=== PATIENT | female | born 1965 | race Caucasian/White ===

== ENCOUNTER 2019-11-25 05:57 | Inpatient (IN) ==
[2019-11-25 06:14] VITALS: BMI 29.7
[2019-11-25] MEDS ORDERED: DEMEROL INJ IVP ONE (06:18)
[2019-11-25] MEDS ORDERED: ZOFRAN INJ 4 MG VIAL IVP ONE ×2 (06:18→08:13)
[2019-11-25] MEDS ORDERED: ZOFRAN INJ 4 MG VIAL ONE ×2 (06:24→08:13)
[2019-11-25] MEDS ORDERED: DEMEROL INJ ONE (06:24)
[2019-11-25 06:26] LABS: BASOPHILS # (AUTO) 0.1 X10^3/uL (0.0-0.1); EOSINOPHILS # (AUTO) 0.2 x10^3/uL (0.0-0.2); HEMATOCRIT 39.2 % (36.0-47.0); HEMOGLOBIN 13.9 g/dL (12.0-16.0); LYMPHOCYTES # (AUTO) 3.3 X10^3/uL (1.3-2.9); LYMPHOCYTES % (AUTO) 29.8 % (21.0-51.0); MEAN CORPUSCULAR HEMOGLOBIN 32.2 pg (27.0-34.0); MEAN CORPUSCULAR HGB CONC 35.5 g/dL (33.0-35.0); MEAN CORPUSCULAR VOLUME 90.8 fL (80.0-100.0); MONOCYTES # (AUTO) 0.8 x10^3/uL (0.3-0.8); MONOCYTES % (AUTO) 7.7 % (0.0-13.0); NEUTROPHILS # (AUTO) 6.5 x10^3/uL (2.2-4.8); NEUTROPHILS % (AUTO) 59.5 % (42.0-75.0); PLATELET COUNT 276 X10^3/uL (150.0-450.0); RED BLOOD COUNT 4.32 X10^6/uL (3.5-5.4); RED CELL DISTRIBUTION WIDTH 12.6 % (11.6-16.5); WHITE BLOOD COUNT 10.9 X10^3/uL (3.6-10.0)
--- NOTE | 2019-11-25 06:27 | ED.ABDFE ---
HPI Time Seen Time Seen by Provider: 11/25/19 06:03 HPI Comment HPI Comment: PATIENT IS 54YR OLD WHITE FEMALE IN ER WITH SEVERE 10/10 RUQ ABDOMINAL PAIN AND RIGHT FLANK PAIN. SHARP PAIN RADIATING TO THE BACK ANC ASSOCIATED WITH NAUSEA AND VOMITING, NO FEVER, TRAUMA OR DYSURIA. Complaint Doctors Chief Complaint Comments: RUQ ABDOMINAL PAIN AND RIGHT FLANK PAIN. Reviewed Nurses Notes Review: Yes Source History Provided: Patient and EMS Mode of arrival Mode of Arrival: EMS Timing Came on: Suddenly Duration Since Onset: Constant Duration: Days Location Location: RUQ (RIGHT FLANK PAIN.) and Epigastric Severity Severity: Severe Quality Quality: Cramping and Sharp Context History of: None Modifying factors Worsening Factors: Exertion and Movement Improving Factors: Lying Still Associated signs and symptoms Associated Signs and Symptoms: Nausea and Vomiting; denies Diarrhea, Constipation, Vaginal Discharge and Dysuria ROS Review of Systems Constitutional: No Symptoms Reported and See HPI; negative Fever, Weakness and Fatigue Eyes: No Symptoms Reported and See HPI ENTM: No Symptoms Reported and See HPI; negative Ear Pain, Nose Discharge, Nose Congestion and Throat Pain Respiratoy: No Symptoms Reported and See HPI; negative Moist Cough, Short of Breath and Wheezing Cardiovascular: No Symptoms Reported and See HPI; negative Chest Pain, Edema and Palpitations Gastrointestinal/Abdominal: See HPI, Abdominal Pain, Nausea and Vomiting Genitourinary: No Symptoms Reported and See HPI; negative Dysuria, Frequency and Hematuria Neurological: No Symptoms Reported and See HPI; negative Headache and Dizziness Musculoskeletal: See HPI, Back Pain and Muscle Pain Integumentary: No Symptoms Reported and See HPI; negative Change in Color, Rash and Juandice Hematologic/Lymphatic: No Symptoms Reported and See HPI; negative Lymph adenopathy Endocrine: No Symptoms Reported and See HPI; negative Increased Thirst and Increased Urine Psychiatric: No Symptoms Reported and See HPI All Other Systems: Reviewed and Negative PE Vital Signs Vitals: Temperature 98.2 F Pulse Rate [Right Brachial] 61 Pulse Rate 69 Respiratory Rate 17 Blood Pressure [Right Arm] 121/72 Blood Pressure 187/86 O2 Sat by Pulse Oximetry 98 General Limitations: No Limitations General Appearance: Alert and In No Apparent Distress Head Head Exam: Normal Inspection and Atraumatic Eyes Eye exam: Normal Appearance, PERRL and EOMI; negative Scleral Icterus and Conjunctival Injection ENT ENT Exam: Normal Exam, Normal Oropharynx, Normal External Ear Exam and TM's Normal Bilaterally Neck Neck Exam: Normal Inspection and Trachea Midline; negative Tenderness and Lymphadenopathy Chest Chest Inspection: Normal Inspection and Symmetric Chest Wall Rise; negative Tenderness Respiratory Respiratory Exam: Normal Lung Sounds Bilat; negative Accessory Muscle Use, Chest Wall Tenderness and Respiratory Distress Respiratory Exam: Bilateral: Clear to Auscultation Cardiovascular Cardiovascular Exam: Regular Rate and Normal Rhythm Abdominal Exam Abdominal Exam: Normal Inspection, Normal Bowel Sounds, Soft and Tenderness Abdominal Tenderness: RUQ, Moderate and Other (RI) Rectal Rectal Exam: Deferred Back Back Exam: Normal Inspection, Tenderness and (R) CVA Tenderness; negative Paraspinal Tenderness and Vertebral Tenderness Extremeties Extremities Exam: Normal Inspection and Normal Capillary Refill; negative Tenderness, Edema and Calf Tenderness External Exam: Female: Deferred : Speculum Exam (Female): Deferred : Bimanual Exam (female): Deferred Neurologic Neurological Exam: Alert and Oriented X3 Psychiatric Psychiatric Exam: Normal Affect and Normal Mood Skin Skin Exam: Warm, Dry and Intact MDM Differential Diagnosis Differential Diagnosis- Considerations may include:: Appendicitis, Cholcystitis, Cholelethiasis, Constipation, Diverticular disease, Esophagitis, Gastritus/PUD, Gastroenteritis, Hernia, Pancreatitis, Urinary tract infection and Urolithiasis COURSE Treatment Treatment: SEE ORDERS. DEMOROL 50MG IV AND ZOFRAN 4MG IV. PATIENT STILL HURTING. TORADOL 30MG IV. PATIENT SIGN OUT TO DR. SUERO. Education/Counseling Education/Counseling: Patient ROR Labs Reviewed Laboratory Results Reviewed?: Yes Result Diagrams: 11/25/19 06:05 11/25/19 06:05 Laboratory: WBC 10.9 X10^3/uL (3.6-10.0) H 11/25/19 06:05 RBC 4.32 X10^6/uL (3.5-5.4) 11/25/19 06:05 Hgb 13.9 g/dL (12.0-16.0) 11/25/19 06:05 Hct 39.2 % (36.0-47.0) 11/25/19 06:05 MCV 90.8 fL (80.0-100.0) 11/25/19 06:05 MCH 32.2 pg (27.0-34.0) 11/25/19 06:05 MCHC 35.5 g/dL (33.0-35.0) H 11/25/19 06:05 RDW 12.6 % (11.6-16.5) 11/25/19 06:05 Plt Count 276 X10^3/uL (150.0-450.0) 11/25/19 06:05 MPV 9.0 fL (7.4-11.0) 11/25/19 06:05 Neut % (Auto) 59.5 % (42.0-75.0) 11/25/19 06:05 Lymph % (Auto) 29.8 % (21.0-51.0) 11/25/19 06:05 [place] % (Auto) 7.7 % (0.0-13.0) 11/25/19 06:05 Eos % (Auto) 2.0 % (0.9-2.9) 11/25/19 06:05 Baso % (Auto) 1.0 % (0.2-1.0) 11/25/19 06:05 Neut # (Auto) 6.5 x10^3/uL (2.2-4.8) H 11/25/19 06:05 Lymph # (Auto) 3.3 X10^3/uL (1.3-2.9) H 11/25/19 06:05 [place] # (Auto) 0.8 x10^3/uL (0.3-0.8) 11/25/19 06:05 Eos # (Auto) 0.2 x10^3/uL (0.0-0.2) 11/25/19 06:05 Baso # (Auto) 0.1 X10^3/uL (0.0-0.1) 11/25/19 06:05 Absolute Nucleated RBC 0.1 /100WBC 11/25/19 06:05 Sodium 137 mmol/L (136-145) 11/25/19 06:05 Corrected Sodium 138 mmol/L (136-145) 11/25/19 06:05 Potassium 3.7 mmol/L (3.5-5.1) 11/25/19 06:05 Chloride 102 mmol/L (98-107) 11/25/19 06:05 Carbon Dioxide 24.7 mmol/L (21-32) 11/25/19 06:05 BUN 16 mg/dL (7-18) 11/25/19 06:05 Creatinine 0.88 mg/dL (0.55-1.02) 11/25/19 06:05 Est GFR (MDRD) Af Amer > 60 (>60) 11/25/19 06:05 Est GFR (MDRD) Non-Af > 60 (>60) 11/25/19 06:05 Glucose 126 mg/dL (65-99) H 11/25/19 06:05 Calcium 9.0 mg/dL (8.5-10.1) 11/25/19 06:05 Corrected Calcium TNP 11/25/19 06:05 Total Bilirubin 0.70 mg/dL (0.2-1.0) 11/25/19 06:05 AST 16 Units/L (15-37) 11/25/19 06:05 ALT 30 Units/L (12-78) 11/25/19 06:05 Alkaline Phosphatase 75 Units/L (46-116) 11/25/19 06:05 Total Protein 7.8 g/dL (6.4-8.2) 11/25/19 06:05 Albumin 3.9 g/dL (3.4-5.0) 11/25/19 06:05 Globulin 3.9 g/dL (2.5-4.5) 11/25/19 06:05 Albumin/Globulin Ratio 1.0 Ratio (1.1-2.1) L 11/25/19 06:05 Amylase 28 Units/L (25-115) 11/25/19 06:05 Lipase 148 Units/L (73-393) 11/25/19 06:05 Specimen Type Clean catch urine 11/25/19 08:56 Urine Color Yellow (YELLOW) 11/25/19 08:56 Urine Appearance Hazy (CLEAR) 11/25/19 08:56 Urine pH 6.5 (5.0 - 8.0) 11/25/19 08:56 Ur Specific [place] 1.005 (1.000-1.030) 11/25/19 08:56 Urine Protein Negative (NEGATIVE) 11/25/19 08:56 Urine Glucose (UA) Negative (NEGATIVE) 11/25/19 08:56 Urine Ketones Negative (NEGATIVE) 11/25/19 08:56 Urine Occult Blood 3+ (NEGATIVE) 11/25/19 08:56 Urine Nitrite Negative (NEGATIVE) 11/25/19 08:56 Urine Bilirubin Negative (NEGATIVE) 11/25/19 08:56 Urine Urobilinogen Normal (NORMAL) 11/25/19 08:56 Ur Leukocyte Esterase Negative (NEGATIVE) 11/25/19 08:56 Urine RBC 3-5 /HPF (0-3) A 11/25/19 08:56 Urine WBC None seen /HPF (0-5) 11/25/19 08:56 Ur Squamous Epith Cells Few /HPF (NEGATIVE) 11/25/19 08:56 Urine Bacteria Negative /HPF (NEGATIVE) 11/25/19 08:56 Ur Culture Indicated? No/not indicated 11/25/19 08:56 Opioid Opioid Risk Tool Age ([place] box if 16-45): No Total: 0 Total Score Risk Category: Low Risk Copyright: Tom ETIENNE predicting aberrant behaviors Instructions Forms: Excuse From Work Patient Portal
[2019-11-25 06:35] LABS: ALANINE AMINOTRANSFERASE 30 Units/L (12-78); ALBUMIN 3.9 g/dL (3.4-5.0); ALKALINE PHOSPHATASE 75 Units/L (46-116); AMYLASE 28 Units/L (25-115); ASPARTATE AMINO TRANSFERASE 16 Units/L (15-37); BLOOD UREA NITROGEN 16 mg/dL (7-18); CARBON DIOXIDE 24.7 mmol/L (21-32); CHLORIDE 102 mmol/L (98-107); COR NA(FOR HYPERGLY) 138 mmol/L (136-145); CREATININE 0.88 mg/dL (0.55-1.02); LIPASE 148 Units/L (73-393); SODIUM 137 mmol/L (136-145); TOTAL PROTEIN 7.8 g/dL (6.4-8.2); eGFR NON BLACK RACES > 60 (>60)
[2019-11-25] MEDS ORDERED: TORADOL 30 MG VIAL IVP ONE (08:08)
[2019-11-25] MEDS ORDERED: TORADOL 30 MG VIAL ONE (08:09)
[2019-11-25 09:23] LABS: BILIRUBIN,URINE NEGATIVE (NEGATIVE); BLOOD/HEMOGLOBIN,URINE 3+ (NEGATIVE); GLUCOSE, URINE NEGATIVE (NEGATIVE); KETONES,URINE NEGATIVE (NEGATIVE); LEUKOCYTE ESTERASE ,URINE NEGATIVE (NEGATIVE); NITRITES,URINE NEGATIVE (NEGATIVE); PH,URINE 6.5 (5.0 - 8.0); PROTEIN,URINE NEGATIVE (NEGATIVE); UROBILINOGEN,URINE NORMAL (NORMAL)
[2019-11-25 09:30] LABS: APPEARANCE,URINE HAZY (CLEAR); BACTERIA,URINE NEGATIVE /HPF (NEGATIVE); COLOR,URINE YELLOW (YELLOW); SQUAMOUS EPITHELIAL CELL,UR FEW /HPF (NEGATIVE)
--- NOTE | 2019-11-25 11:04 | ED.ABDFE ---
HPI Time Seen Time Seen by Provider: 11/25/19 06:03 PCP Primary Care Physician: Complaint Chief Complaint:: pt stated she started hurting this morning in her abdominal area and back. Self Treatment fo Chief Complaint: pt stated she took her protonix 40 mg. Source History Provided: Patient and EMS Mode of arrival Mode of Arrival: EMS Timing Onset of Chief Complaint: 11/25/19 Came on: Suddenly PMH PMH Past Medical History: Yes Past Medical History: Hypertension Past Surgical History: Yes Past Surgical History Comment: NECK SURGERY Family History History of Family Medical Conditions: Yes Family Medical History: Hypertension Social History Does patient currently use any type of tobacco product: No Have you used tobacco products in the last 12 months: No Type of Tobacco Use: None Does any household member use tobacco: No Alcohol Use: Occasionally Do you use any recreational Drugs:: Yes (MARIJUANA) Lives With: Spouse Lives Where: Home infectious screening In the last 2 months have you had wt loss of >10#?: NO Have you had fever, night sweats or hemotysis?: No Have you traveled outside the country in the last 6 months?: No Isolation: Standard ROS Review of Systems Constitutional: No Symptoms Reported Eyes: No Symptoms Reported ENTM: No Symptoms Reported Respiratoy: No Symptoms Reported Cardiovascular: No Symptoms Reported Gastrointestinal/Abdominal: No Symptoms Reported Genitourinary: No Symptoms Reported Neurological: No Symptoms Reported Musculoskeletal: No Symptoms Reported Integumentary: No Symptoms Reported Hematologic/Lymphatic: No Symptoms Reported Endocrine: No Symptoms Reported Psychiatric: No Symptoms Reported All Other Systems: Reviewed and Negative PE Vital Signs Vitals: Temperature 98.2 F Pulse Rate [Right Brachial] 61 Pulse Rate 69 Respiratory Rate 17 Blood Pressure [Right Arm] 121/72 Blood Pressure 187/86 O2 Sat by Pulse Oximetry 98 ROR Labs Reviewed Result Diagrams: 11/25/19 06:05 11/25/19 06:05 Laboratory: WBC 10.9 X10^3/uL (3.6-10.0) H 11/25/19 06:05 RBC 4.32 X10^6/uL (3.5-5.4) 11/25/19 06:05 Hgb 13.9 g/dL (12.0-16.0) 11/25/19 06:05 Hct 39.2 % (36.0-47.0) 11/25/19 06:05 MCV 90.8 fL (80.0-100.0) 11/25/19 06:05 MCH 32.2 pg (27.0-34.0) 11/25/19 06:05 MCHC 35.5 g/dL (33.0-35.0) H 11/25/19 06:05 RDW 12.6 % (11.6-16.5) 11/25/19 06:05 Plt Count 276 X10^3/uL (150.0-450.0) 11/25/19 06:05 MPV 9.0 fL (7.4-11.0) 11/25/19 06:05 Neut % (Auto) 59.5 % (42.0-75.0) 11/25/19 06:05 Lymph % (Auto) 29.8 % (21.0-51.0) 11/25/19 06:05 [place] % (Auto) 7.7 % (0.0-13.0) 11/25/19 06:05 Eos % (Auto) 2.0 % (0.9-2.9) 11/25/19 06:05 Baso % (Auto) 1.0 % (0.2-1.0) 11/25/19 06:05 Neut # (Auto) 6.5 x10^3/uL (2.2-4.8) H 11/25/19 06:05 Lymph # (Auto) 3.3 X10^3/uL (1.3-2.9) H 11/25/19 06:05 [place] # (Auto) 0.8 x10^3/uL (0.3-0.8) 11/25/19 06:05 Eos # (Auto) 0.2 x10^3/uL (0.0-0.2) 11/25/19 06:05 Baso # (Auto) 0.1 X10^3/uL (0.0-0.1) 11/25/19 06:05 Absolute Nucleated RBC 0.1 /100WBC 11/25/19 06:05 Sodium 137 mmol/L (136-145) 11/25/19 06:05 Corrected Sodium 138 mmol/L (136-145) 11/25/19 06:05 Potassium 3.7 mmol/L (3.5-5.1) 11/25/19 06:05 Chloride 102 mmol/L (98-107) 11/25/19 06:05 Carbon Dioxide 24.7 mmol/L (21-32) 11/25/19 06:05 BUN 16 mg/dL (7-18) 11/25/19 06:05 Creatinine 0.88 mg/dL (0.55-1.02) 11/25/19 06:05 Est GFR (MDRD) Af Amer > 60 (>60) 11/25/19 06:05 Est GFR (MDRD) Non-Af > 60 (>60) 11/25/19 06:05 Glucose 126 mg/dL (65-99) H 11/25/19 06:05 Calcium 9.0 mg/dL (8.5-10.1) 11/25/19 06:05 Corrected Calcium TNP 11/25/19 06:05 Total Bilirubin 0.70 mg/dL (0.2-1.0) 11/25/19 06:05 AST 16 Units/L (15-37) 11/25/19 06:05 ALT 30 Units/L (12-78) 11/25/19 06:05 Alkaline Phosphatase 75 Units/L (46-116) 11/25/19 06:05 Total Protein 7.8 g/dL (6.4-8.2) 11/25/19 06:05 Albumin 3.9 g/dL (3.4-5.0) 11/25/19 06:05 Globulin 3.9 g/dL (2.5-4.5) 11/25/19 06:05 Albumin/Globulin Ratio 1.0 Ratio (1.1-2.1) L 11/25/19 06:05 Amylase 28 Units/L (25-115) 11/25/19 06:05 Lipase 148 Units/L (73-393) 11/25/19 06:05 Specimen Type Clean catch urine 11/25/19 08:56 Urine Color Yellow (YELLOW) 11/25/19 08:56 Urine Appearance Hazy (CLEAR) 11/25/19 08:56 Urine pH 6.5 (5.0 - 8.0) 11/25/19 08:56 Ur Specific [place] 1.005 (1.000-1.030) 11/25/19 08:56 Urine Protein Negative (NEGATIVE) 11/25/19 08:56 Urine Glucose (UA) Negative (NEGATIVE) 11/25/19 08:56 Urine Ketones Negative (NEGATIVE) 11/25/19 08:56 Urine Occult Blood 3+ (NEGATIVE) 11/25/19 08:56 Urine Nitrite Negative (NEGATIVE) 11/25/19 08:56 Urine Bilirubin Negative (NEGATIVE) 11/25/19 08:56 Urine Urobilinogen Normal (NORMAL) 11/25/19 08:56 Ur Leukocyte Esterase Negative (NEGATIVE) 11/25/19 08:56 Urine RBC 3-5 /HPF (0-3) A 11/25/19 08:56 Urine WBC None seen /HPF (0-5) 11/25/19 08:56 Ur Squamous Epith Cells Few /HPF (NEGATIVE) 11/25/19 08:56 Urine Bacteria Negative /HPF (NEGATIVE) 11/25/19 08:56 Ur Culture Indicated? No/not indicated 11/25/19 08:56 Opioid Opioid Risk Tool Age ([place] box if 16-45): No Total: 0 Total Score Risk Category: Low Risk Copyright: Tom ETIENNE predicting aberrant behaviors Diagnosis Discharge Problem: Abdominal pain Qualifiers: Abdominal location: upper abdomen, unspecified Qualified Code(s): R10.10 - Upper abdominal pain, unspecified Instructions Instructions: Abdominal Pain, Adult, [id number] Forms: Excuse From Work Patient Portal
--- NOTE | 2019-11-25 11:07 | CT ---
HISTORYABD PAINSTUDYABDOMEN/PELVIS WITH CONCOMPARISONNoneTECHNIQUEMultiple axial images of the abdomen and pelvis were obtained from the lung bases to the pubic symphysis after the administration of IV contrast. Dose reduction techniques including Automated Exposure Control (AEC) and adjustment of mA and kV were utilized.FINDINGSThe visualized portions of the lung bases are unremarkable. There is some stranding around the tail of the pancreas compatible with acute pancreatitis. The pancreas enhances normally and there is no evidence for splenic artery aneurysm or portal venous/splenic vein thrombosis. The solid organs otherwise unremarkable in their contrast appearance. The gallbladder is unremarkable in its CT appearance . No significant mesenteric lymphadenopathy or stranding can be observed. No free fluid or free air is seen within the abdomen. No bowel wall thickening or bowel dilatation is present. The colon demonstrates left-sided diverticulosis without evidence for diverticulitis. Appendix is normal. There is an IUD noted in the uterus. The urinary bladder is grossly unremarkable. The bony structures are grossly intact.IMPRESSIONFindings as above compatible with acute pancreatitis.Left-sided colonic diverticulosis without evidence for diverticulitis.Electronically signed by: ROSA PEREZ (Nov 25, 2019 11:05:55)
--- NOTE | 2019-11-25 11:17 | ED.ABDFE ---
HPI Time Seen Time Seen by Provider: 11/25/19 06:03 PCP Primary Care Physician: HPI Comment HPI Comment: Case signed over to be from Dr. Anaya Complaint Chief Complaint:: pt stated she started hurting this morning in her abdominal area and back. Self Treatment fo Chief Complaint: pt stated she took her protonix 40 mg. Reviewed Nurses Notes Review: Yes Source History Provided: Patient and EMS Mode of arrival Mode of Arrival: EMS Timing Onset of Chief Complaint: 11/25/19 Came on: Suddenly PMH PMH Past Medical History: Yes Past Medical History: Hypertension Past Surgical History: Yes Past Surgical History Comment: NECK SURGERY Family History History of Family Medical Conditions: Yes Family Medical History: Hypertension Social History Does patient currently use any type of tobacco product: No Have you used tobacco products in the last 12 months: No Type of Tobacco Use: None Does any household member use tobacco: No Alcohol Use: Occasionally Do you use any recreational Drugs:: Yes (MARIJUANA) Lives With: Spouse Lives Where: Home infectious screening In the last 2 months have you had wt loss of >10#?: NO Have you had fever, night sweats or hemotysis?: No Have you traveled outside the country in the last 6 months?: No Isolation: Standard PE Vital Signs Vitals: Temperature 98.2 F Pulse Rate [Right Brachial] 60 Pulse Rate 69 Respiratory Rate 17 Blood Pressure [Right Arm] 186/83 Blood Pressure 187/86 O2 Sat by Pulse Oximetry 99 ROR Labs Reviewed Laboratory Results Reviewed?: Yes Result Diagrams: 11/25/19 06:05 11/25/19 06:05 Laboratory: WBC 10.9 X10^3/uL (3.6-10.0) H 11/25/19 06:05 RBC 4.32 X10^6/uL (3.5-5.4) 11/25/19 06:05 Hgb 13.9 g/dL (12.0-16.0) 11/25/19 06:05 Hct 39.2 % (36.0-47.0) 11/25/19 06:05 MCV 90.8 fL (80.0-100.0) 11/25/19 06:05 MCH 32.2 pg (27.0-34.0) 11/25/19 06:05 MCHC 35.5 g/dL (33.0-35.0) H 11/25/19 06:05 RDW 12.6 % (11.6-16.5) 11/25/19 06:05 Plt Count 276 X10^3/uL (150.0-450.0) 11/25/19 06:05 MPV 9.0 fL (7.4-11.0) 11/25/19 06:05 Neut % (Auto) 59.5 % (42.0-75.0) 11/25/19 06:05 Lymph % (Auto) 29.8 % (21.0-51.0) 11/25/19 06:05 [place] % (Auto) 7.7 % (0.0-13.0) 11/25/19 06:05 Eos % (Auto) 2.0 % (0.9-2.9) 11/25/19 06:05 Baso % (Auto) 1.0 % (0.2-1.0) 11/25/19 06:05 Neut # (Auto) 6.5 x10^3/uL (2.2-4.8) H 11/25/19 06:05 Lymph # (Auto) 3.3 X10^3/uL (1.3-2.9) H 11/25/19 06:05 [place] # (Auto) 0.8 x10^3/uL (0.3-0.8) 11/25/19 06:05 Eos # (Auto) 0.2 x10^3/uL (0.0-0.2) 11/25/19 06:05 Baso # (Auto) 0.1 X10^3/uL (0.0-0.1) 11/25/19 06:05 Absolute Nucleated RBC 0.1 /100WBC 11/25/19 06:05 Sodium 137 mmol/L (136-145) 11/25/19 06:05 Corrected Sodium 138 mmol/L (136-145) 11/25/19 06:05 Potassium 3.7 mmol/L (3.5-5.1) 11/25/19 06:05 Chloride 102 mmol/L (98-107) 11/25/19 06:05 Carbon Dioxide 24.7 mmol/L (21-32) 11/25/19 06:05 BUN 16 mg/dL (7-18) 11/25/19 06:05 Creatinine 0.88 mg/dL (0.55-1.02) 11/25/19 06:05 Est GFR (MDRD) Af Amer > 60 (>60) 11/25/19 06:05 Est GFR (MDRD) Non-Af > 60 (>60) 11/25/19 06:05 Glucose 126 mg/dL (65-99) H 11/25/19 06:05 Calcium 9.0 mg/dL (8.5-10.1) 11/25/19 06:05 Corrected Calcium TNP 11/25/19 06:05 Total Bilirubin 0.70 mg/dL (0.2-1.0) 11/25/19 06:05 AST 16 Units/L (15-37) 11/25/19 06:05 ALT 30 Units/L (12-78) 11/25/19 06:05 Alkaline Phosphatase 75 Units/L (46-116) 11/25/19 06:05 Total Protein 7.8 g/dL (6.4-8.2) 11/25/19 06:05 Albumin 3.9 g/dL (3.4-5.0) 11/25/19 06:05 Globulin 3.9 g/dL (2.5-4.5) 11/25/19 06:05 Albumin/Globulin Ratio 1.0 Ratio (1.1-2.1) L 11/25/19 06:05 Amylase 28 Units/L (25-115) 11/25/19 06:05 Lipase 148 Units/L (73-393) 11/25/19 06:05 Specimen Type Clean catch urine 11/25/19 08:56 Urine Color Yellow (YELLOW) 11/25/19 08:56 Urine Appearance Hazy (CLEAR) 11/25/19 08:56 Urine pH 6.5 (5.0 - 8.0) 11/25/19 08:56 Ur Specific [place] 1.005 (1.000-1.030) 11/25/19 08:56 Urine Protein Negative (NEGATIVE) 11/25/19 08:56 Urine Glucose (UA) Negative (NEGATIVE) 11/25/19 08:56 Urine Ketones Negative (NEGATIVE) 11/25/19 08:56 Urine Occult Blood 3+ (NEGATIVE) 11/25/19 08:56 Urine Nitrite Negative (NEGATIVE) 11/25/19 08:56 Urine Bilirubin Negative (NEGATIVE) 11/25/19 08:56 Urine Urobilinogen Normal (NORMAL) 11/25/19 08:56 Ur Leukocyte Esterase Negative (NEGATIVE) 11/25/19 08:56 Urine RBC 3-5 /HPF (0-3) A 11/25/19 08:56 Urine WBC None seen /HPF (0-5) 11/25/19 08:56 Ur Squamous Epith Cells Few /HPF (NEGATIVE) 11/25/19 08:56 Urine Bacteria Negative /HPF (NEGATIVE) 11/25/19 08:56 Ur Culture Indicated? No/not indicated 11/25/19 08:56 Other Results Comments: HISTORY ABD PAIN STUDY ABDOMEN/PELVIS WITH CON COMPARISON None TECHNIQUE Multiple axial images of the abdomen and pelvis were obtained from the lung bases to the pubic symphysis after the administration of IV contrast. Dose reduction techniques including Automated Exposure Control (AEC) and adjustment of mA and kV were utilized. FINDINGS The visualized portions of the lung bases are unremarkable. There is some stranding around the tail of the pancreas compatible with acute pancreatitis. Th e pancreas enhances normally and there is no evidence for splenic artery aneurysm or portal venous/splenic vein thrombosis. The solid organs otherwise unremarkable in their contrast appearance. The gallbladder is unremarkable in its CT appearance . No significant mesenteric lymphadenopathy or stranding can be observed. No free fluid or free air is seen within the abdomen. No bowel wall thickening or bowel dilatation is present. The colon demonstrates left- sided diverticulosis without evidence for diverticulitis. Appendix is normal. There is an IUD noted in the uterus. The urinary bladder is grossly unremarkable. The bony structures are grossly intact. IMPRESSION Findings as above compatible with acute pancreatitis. Left-sided colonic diverticulosis without evidence for diverticulitis. Electronically signed by: ROSA PEREZ (Nov 25, 2019 11:05:55) Opioid Opioid Risk Tool Age ([place] box if 16-45): No Total: 0 Total Score Risk Category: Low Risk Copyright: [facility] predicting aberrant behaviors Diagnosis Discharge Problem: Abdominal pain Qualifiers: Abdominal location: upper abdomen, unspecified Qualified Code(s): R10.10 - Upper abdominal pain, unspecified Instructions Instructions: Abdominal Pain, Adult, [id number] Forms: Excuse From Work Patient Portal ADDITIONAL NOTES Additional Notes Additional Notes: Dr. Moncada came to see the patient in the ED. He states he is willing to consult on the patient in the hospital. Dr. Sarkar and he is willing to admit- he is requesting inpatient.
[2019-11-25] MEDS ORDERED: MORPHINE SULFATE INJ 4 MG IVP ONE (11:48)
[2019-11-25] MEDS ORDERED: MORPHINE SULFATE INJ 4 MG ONE (11:59)
--- NOTE | 2019-11-25 12:23 | DR.H&P ---
H&P History & Physical for Day of: H&P Date: 11/25/19 Chief Complaint Chief Complaint: Abdominal pain Allergies Allergies Allergy/AdvReac Type Severity Reaction Status Date / Time No Known Drug Allergies Allergy Verified 11/25/19 12:58 History of Present Illness History of Present Illness: Pt is a 54 yo f pmhx HTN,THOM, DDD, Alcohol use, presenting after having acute abdominal pain this morning w/ associated nausea. Pt reports have persistent sx for over a month and was waiting for her insurance to be approved before seeing a doctor. Her abdominal pain localized to the epigastrium with radiating to the left side and accompanied by nausea and vomiting. Pt has had decreased po intake as pain is aggravated anytime she eats. In the ED, initial labs and imaging:WBC 10.9, Gluc 126, UA unremarkable, CT abd/pelv: There is some stranding around the tail of the pancreas compatible with acute pancreatitis. Pt was started on IVF, pain control with morphine, kept NPO except medications. Will follow up with labs in the morning. Dr. Thompson consulted, appreciate the recs. Past Medical History Past Medical History: Hypertension Family History Family Medical History: Hypertension Social History Does patient currently use any type of tobacco product: No Have you used tobacco products in the last 12 months: No Type of Tobacco Use: None Does any household member use tobacco: No Alcohol Use: Occasionally Medications Home Medications: No Known Drug Allergies Allergy (Verified 11/25/19 06:05) CONTINUE taking the following medications alprazolam [Xanax] 0.5 mg PO BID 11/25/19 [History] amlodipine 10 mg PO DAILY 11/25/19 [History] lisinopril-hydrochlorothiazide 1 tab PO DAILY 11/25/19 [History] oxycodone-acetaminophen [Percocet] 1 tab PO BID 11/25/19 [History] tizanidine [Zanaflex] 4 mg PO BID 11/25/19 [History] Labs Result Diagrams: 11/26/19 05:09 11/26/19 05:09 Labs: Laboratory WBC 10.9 X10^3/uL (3.6-10.0) H 11/25/19 06:05 RBC 4.32 X10^6/uL (3.5-5.4) 11/25/19 06:05 Hgb 13.9 g/dL (12.0-16.0) 11/25/19 06:05 Hct 39.2 % (36.0-47.0) 11/25/19 06:05 MCV 90.8 fL (80.0-100.0) 11/25/19 06:05 MCH 32.2 pg (27.0-34.0) 11/25/19 06:05 MCHC 35.5 g/dL (33.0-35.0) H 11/25/19 06:05 RDW 12.6 % (11.6-16.5) 11/25/19 06:05 Plt Count 276 X10^3/uL (150.0-450.0) 11/25/19 06:05 MPV 9.0 fL (7.4-11.0) 11/25/19 06:05 Neut % (Auto) 59.5 % (42.0-75.0) 11/25/19 06:05 Lymph % (Auto) 29.8 % (21.0-51.0) 11/25/19 06:05 [place] % (Auto) 7.7 % (0.0-13.0) 11/25/19 06:05 Eos % (Auto) 2.0 % (0.9-2.9) 11/25/19 06:05 Baso % (Auto) 1.0 % (0.2-1.0) 11/25/19 06:05 Neut # (Auto) 6.5 x10^3/uL (2.2-4.8) H 11/25/19 06:05 Lymph # (Auto) 3.3 X10^3/uL (1.3-2.9) H 11/25/19 06:05 [place] # (Auto) 0.8 x10^3/uL (0.3-0.8) 11/25/19 06:05 Eos # (Auto) 0.2 x10^3/uL (0.0-0.2) 11/25/19 06:05 Baso # (Auto) 0.1 X10^3/uL (0.0-0.1) 11/25/19 06:05 Absolute Nucleated RBC 0.1 /100WBC 11/25/19 06:05 Sodium 137 mmol/L (136-145) 11/25/19 06:05 Corrected Sodium 138 mmol/L (136-145) 11/25/19 06:05 Potassium 3.7 mmol/L (3.5-5.1) 11/25/19 06:05 Chloride 102 mmol/L (98-107) 11/25/19 06:05 Carbon Dioxide 24.7 mmol/L (21-32) 11/25/19 06:05 BUN 16 mg/dL (7-18) 11/25/19 06:05 Creatinine 0.88 mg/dL (0.55-1.02) 11/25/19 06:05 Est GFR (MDRD) Af Amer > 60 (>60) 11/25/19 06:05 Est GFR (MDRD) Non-Af > 60 (>60) 11/25/19 06:05 Glucose 126 mg/dL (65-99) H 11/25/19 06:05 Calcium 9.0 mg/dL (8.5-10.1) 11/25/19 06:05 Corrected Calcium TNP 11/25/19 06:05 Total Bilirubin 0.70 mg/dL (0.2-1.0) 11/25/19 06:05 AST 16 Units/L (15-37) 11/25/19 06:05 ALT 30 Units/L (12-78) 11/25/19 06:05 Alkaline Phosphatase 75 Units/L (46-116) 11/25/19 06:05 Total Protein 7.8 g/dL (6.4-8.2) 11/25/19 06:05 Albumin 3.9 g/dL (3.4-5.0) 11/25/19 06:05 Globulin 3.9 g/dL (2.5-4.5) 11/25/19 06:05 Albumin/Globulin Ratio 1.0 Ratio (1.1-2.1) L 11/25/19 06:05 Amylase 28 Units/L (25-115) 11/25/19 06:05 Lipase 148 Units/L (73-393) 11/25/19 06:05 Specimen Type Clean catch urine 11/25/19 08:56 Urine Color Yellow (YELLOW) 11/25/19 08:56 Urine Appearance Hazy (CLEAR) 11/25/19 08:56 Urine pH 6.5 (5.0 - 8.0) 11/25/19 08:56 Ur Specific [place] 1.005 (1.000-1.030) 11/25/19 08:56 Urine Protein Negative (NEGATIVE) 11/25/19 08:56 Urine Glucose (UA) Negative (NEGATIVE) 11/25/19 08:56 Urine Ketones Negative (NEGATIVE) 11/25/19 08:56 Urine Occult Blood 3+ (NEGATIVE) 11/25/19 08:56 Urine Nitrite Negative (NEGATIVE) 11/25/19 08:56 Urine Bilirubin Negative (NEGATIVE) 11/25/19 08:56 Urine Urobilinogen Normal (NORMAL) 11/25/19 08:56 Ur Leukocyte Esterase Negative (NEGATIVE) 11/25/19 08:56 Urine RBC 3-5 /HPF (0-3) A 11/25/19 08:56 Urine WBC None seen /HPF (0-5) 11/25/19 08:56 Ur Squamous Epith Cells Few /HPF (NEGATIVE) 11/25/19 08:56 Urine Bacteria Negative /HPF (NEGATIVE) 11/25/19 08:56 Ur Culture Indicated? No/not indicated 11/25/19 08:56 Review of Systems Constitutional: denies Fever and Chills Eyes: No Symptoms Reported ENT: No Symptoms Reported Respiratory: No Symptoms Reported Cardiovascular: No Symptoms Reported Gastrointestinal: Nausea and Abdominal Pain Genitourinary: No Symptoms Reported Musculoskeletal: No Symptoms Reported Skin: No Symptoms Reported Neurological: No Symptoms Reported Physical Exam Vital Signs: Temperature 98.2 F Pulse Rate [Right Brachial] 60 Pulse Rate 69 Respiratory Rate 16 Blood Pressure [Right Arm] 186/83 Blood Pressure 187/86 O2 Sat by Pulse Oximetry 99 Oriented: Normal Eyes: Normal Ear: Normal Nose: Normal Respiratory: Clear Throughout Cardiovascular: Normal : Normal Auscultation: Bowel Sounds: Increased Palpation: Normal Tenderness: Epigastric and Periumbilical Skin: Normal Musculoskeletal: Normal Psychiatric: Normal Mood Description: Calm Assessment/Plan (1) Acute pancreatitis: Status: Acute Plan: NPO, IVF, pain control. Continue to monitor and follow up labs. (2) Hypertension: Status: Acute Plan: Restart home medications (3) THOM (generalized anxiety disorder): Status: Acute Plan: Home medications (4) DDD (degenerative disc disease): Status: Acute Plan: Holding Percocet, pt has morphine prn ordered for pain control. Review H&P Reviewed: Yes Patient was examined?: Yes
[2019-11-25] MEDS ORDERED: AFLURIA II4 or FLUARIX II4 IM ONE (13:31)
[2019-11-25] MEDS: NORVASC TAB 10 MG PO SCH (14:28)
[2019-11-25] MEDS: ZESTORETIC 20/25 MG PO SCH (14:28)
[2019-11-25] MEDS: NS 1000 ML 1,000 ML IV SCH ×2 (14:29→21:05)
[2019-11-25] MEDS: MORPHINE SULFATE INJ 2 MG INJ IVP PRN ×3 (14:29→22:16)
[2019-11-25] MEDS: ZOFRAN INJ 4 MG VIAL IVP PRN ×2 (14:30→22:16)
[2019-11-25 14:51] LABS: HEMOGLOBIN A1C 5.1 %
[2019-11-25 14:54] LABS: AMYLASE 28 Units/L (25-115); BLOOD ALCOHOL < 3 mg/dL (0-19.9); CHOL/HDL RATIO 5.3 (0.0-5.0); CHOLESTEROL 207 mg/dL (0-200); HDL CHOLESTEROL 39 mg/dL (40-60); LIPASE 149 Units/L (73-393); TRIGLYCERIDES 254 mg/dL (0-150)
[2019-11-25] MEDS: D5 1/2 NS 1000 ML 1,000 ML IV SCH (17:52)
[2019-11-25] MEDS: NORCO 5/325 MG TAB PO PRN ×2 (19:35→23:40)
[2019-11-25] MEDS: ZANAFLEX PO SCH (20:05)
[2019-11-25] MEDS: XANAX PO SCH (20:05)
[2019-11-26] MEDS: D5 1/2 NS 1000 ML 1,000 ML IV SCH ×5 (00:23→23:24)
[2019-11-26] MEDS: MORPHINE SULFATE INJ 2 MG INJ IVP PRN ×5 (02:15→19:00)
[2019-11-26] MEDS: NORCO 5/325 MG TAB PO PRN ×4 (04:00→21:00)
[2019-11-26 05:49] LABS: BASOPHILS # (AUTO) 0.1 X10^3/uL (0.0-0.1); BASOPHILS % (AUTO) 0.8 % (0.2-1.0); EOSINOPHILS # (AUTO) 0.2 x10^3/uL (0.0-0.2); EOSINOPHILS % (AUTO) 2.6 % (0.9-2.9); HEMATOCRIT 35.3 % (36.0-47.0); HEMOGLOBIN 12.9 g/dL (12.0-16.0); LYMPHOCYTES # (AUTO) 2.4 X10^3/uL (1.3-2.9); LYMPHOCYTES % (AUTO) 32.4 % (21.0-51.0); MEAN CORPUSCULAR HGB CONC 36.5 g/dL (33.0-35.0); MEAN CORPUSCULAR VOLUME 90.2 fL (80.0-100.0); MEAN PLATELET VOLUME 9.3 fL (7.4-11.0); MONOCYTES # (AUTO) 0.6 x10^3/uL (0.3-0.8); MONOCYTES % (AUTO) 8.1 % (0.0-13.0); NEUTROPHILS # (AUTO) 4.2 x10^3/uL (2.2-4.8); NEUTROPHILS % (AUTO) 56.1 % (42.0-75.0); PLATELET COUNT 229 X10^3/uL (150.0-450.0); RED BLOOD COUNT 3.91 X10^6/uL (3.5-5.4); RED CELL DISTRIBUTION WIDTH 12.4 % (11.6-16.5); WHITE BLOOD COUNT 7.5 X10^3/uL (3.6-10.0)
[2019-11-26 06:05] LABS: ALANINE AMINOTRANSFERASE 25 Units/L (12-78); ALBUMIN 3.4 g/dL (3.4-5.0); ALKALINE PHOSPHATASE 73 Units/L (46-116); ASPARTATE AMINO TRANSFERASE 12 Units/L (15-37); BLOOD UREA NITROGEN 15 mg/dL (7-18); CALCIUM 8.6 mg/dL (8.5-10.1); CARBON DIOXIDE 27.4 mmol/L (21-32); CHLORIDE 104 mmol/L (98-107); CREATININE 1.07 mg/dL (0.55-1.02); SODIUM 140 mmol/L (136-145); TOTAL PROTEIN 7.1 g/dL (6.4-8.2); eGFR NON BLACK RACES 57 (>60)
[2019-11-26] MEDS ORDERED: MICRO K EXTEN CAP 10 MEQ PO PRN (06:55)
[2019-11-26] MEDS ORDERED: MAGNESIUM SULFATE 1 GRAM/100 mL PREMIX 1 GM/100 ML BAG IV PRN (06:55)
[2019-11-26] MEDS ORDERED: POTASSIUM CHL 60 MEQ/NS 0.45% 500 ML IV PRN (06:55)
[2019-11-26] MEDS ORDERED: K-RIDER 10 MEQ/NS 100 ML 10 MEQ/100 ML BAG IV PRN (06:55)
[2019-11-26] MEDS ORDERED: K-DUR TAB 20 MEQ PO PRN (06:55)
[2019-11-26] MEDS ORDERED: POTASSIUM CHL 40 MEQ/NS 0.45% 500 ML IV PRN (06:55)
[2019-11-26] MEDS ORDERED: KLOR-CON PO PRN (06:55)
[2019-11-26] MEDS ORDERED: POTASSIUM CHLORIDE LIQ 20 MEQ UDC PO PRN (06:55)
[2019-11-26] MEDS: XANAX PO SCH ×2 (08:03→21:57)
[2019-11-26] MEDS: ZANAFLEX PO SCH ×2 (08:26→21:57)
[2019-11-26] MEDS: NORVASC TAB 10 MG PO SCH (08:26)
[2019-11-26] MEDS: ZESTORETIC 20/25 MG PO SCH (08:31)
[2019-11-26] MEDS ORDERED: PREVNAR 13 IM ONE (08:33)
--- NOTE | 2019-11-26 09:31 | US ---
HISTORY: [Abdominal pain and pancreatitis.]Study: Right upper quadrant abdominal ultrasoundComparison: [The recent abdominopelvic CT examination performed is not available for my review currently]Technique: Multiple putnam scale and color flow Doppler images of the right upper quadrant were obtained.Findings:The liver [fatty/echogenic]. There is a hypoechoic liver lesion versus 'pseudo' lesion seen within the left hepatic lobe which measures 19 x 16 mm in size. This could reflect a true liver lesion or focal fatty sparing and could be best followed up with MR imaging of the liver with IV contrast and inphase/out of phase sequencing. The portal vein is patent with appropriate flow. The hepatic artery and visualized hepatic veins are also patent. No no other focal intraparenchymal mass or intrahepatic biliary ductal dilatation can be observed. [The mildly distended gallbladder fails to demonstrate evidence for cholelithiasis or layering sludge]. The common bile duct is unremarkable measuring [6 mm]. [No pericholecystic fluid or gallbladder wall thickening can be observed]. The CBD measures [within normal limits]. The right kidney appears normal in size without focal parenchymal mass or nephrolithiasis. The right kidney measurers [11 x 5 x 6 cm]. No hydronephrosis or perirenal fluid can be observed. The [pancreatic head and body are unremarkable. The pancreatic tail] is largely obscured by overlying bowel gas. No other right upper quadrant sonographic abnormalities are identified on this examination.IMPRESSION: Imaging evidence for acute pancreatitis is better demonstrated on the comparative abdominopelvic CT exam. Please see this report.The liver [fatty/echogenic]. There is a hypoechoic liver lesion versus 'pseudo' lesion seen within the left hepatic lobe which measures 19 x 16 mm in size. This could reflect a true liver lesion or focal fatty sparing and could be best followed up with outpatient MR imaging of the liver with IV contrast and inphase/out of phase sequencing. The portal vein is patent with appropriate flow. Distended gallbladder without gallstones or evidence of acute cholecystitis.The common bile duct and pancreatic duct are within normal limits for age without convincing secondary ultrasound evidence for choledocholithiasis.Electronically signed by: ADRIANE LUKE III (Nov 26, 2019 09:30:06)
--- NOTE | 2019-11-26 10:05 | PCM.PROG ---
Progress Note Progress Note for Day of Date of Exam: 11/26/19 Subjective Subjective: Pt is a 54 yo f admitted for acute pancreatitis. Her pain is controlled on current regiment. She still has abdominal tenderness, some nausea. Her K was low at 3.1, will replete. She is scheduled by surgery to have U/S and if necessary may need further imaging studies. Continue to monitor and follow morning labs. Past Medical Family Social History Past Med/Fam/Surg Hx: No changes since H&P Allergies: Allergies No Known Drug Allergies Allergy (Verified 11/25/19 12:58) Review of Systems ROS: No change since H&P Vital Signs and I&O's Vital Signs: Temperature 98.1 F Pulse Rate [Right Brachial] 72 Pulse Rate 69 Respiratory Rate 20 Blood Pressure [Left Arm] 113/64 Blood Pressure [Right Arm] 181/83 Blood Pressure 187/86 O2 Sat by Pulse Oximetry 100 Intake and Output: Intake & Output 11/23/19 11/24/19 11/25/19 11/26/19 23:59 23:59 23:59 23:59 Intake Total 1472 / 1472 903 / 903 Balance 1472 / 1472 903 / 903 Physical Exam Oriented: Normal Eyes: Normal Ear: Normal Nose: Normal Respiratory: Normal Cardiovascular: Normal : Normal Auscultation: Bowel Sounds: Normal Tenderness: Epigastric and Periumbilical Skin: Normal Musculoskeletal: Normal Psychiatric: Normal Mood Description: Calm Speech Pattern: Clear and Appropriate Laboratory and Diagnostics Result Diagrams: 11/26/19 05:09 11/26/19 05:09 Labs: Laboratory WBC 7.5 X10^3/uL (3.6-10.0) 11/26/19 05:09 RBC 3.91 X10^6/uL (3.5-5.4) 11/26/19 05:09 Hgb 12.9 g/dL (12.0-16.0) 11/26/19 05:09 Hct 35.3 % (36.0-47.0) L 11/26/19 05:09 MCV 90.2 fL (80.0-100.0) 11/26/19 05:09 MCH 33.0 pg (27.0-34.0) 11/26/19 05:09 MCHC 36.5 g/dL (33.0-35.0) H 11/26/19 05:09 RDW 12.4 % (11.6-16.5) 11/26/19 05:09 Plt Count 229 X10^3/uL (150.0-450.0) 11/26/19 05:09 MPV 9.3 fL (7.4-11.0) 11/26/19 05:09 Neut % (Auto) 56.1 % (42.0-75.0) 11/26/19 05:09 Lymph % (Auto) 32.4 % (21.0-51.0) 11/26/19 05:09 [place] % (Auto) 8.1 % (0.0-13.0) 11/26/19 05:09 Eos % (Auto) 2.6 % (0.9-2.9) 11/26/19 05:09 Baso % (Auto) 0.8 % (0.2-1.0) 11/26/19 05:09 Neut # (Auto) 4.2 x10^3/uL (2.2-4.8) 11/26/19 05:09 Lymph # (Auto) 2.4 X10^3/uL (1.3-2.9) 11/26/19 05:09 [place] # (Auto) 0.6 x10^3/uL (0.3-0.8) 11/26/19 05:09 Eos # (Auto) 0.2 x10^3/uL (0.0-0.2) 11/26/19 05:09 Baso # (Auto) 0.1 X10^3/uL (0.0-0.1) 11/26/19 05:09 Absolute Nucleated RBC 0.0 /100WBC 11/26/19 05:09 Sodium 140 mmol/L (136-145) 11/26/19 05:09 Corrected Sodium TNP 11/26/19 05:09 Potassium 3.1 mmol/L (3.5-5.1) L 11/26/19 05:09 Chloride 104 mmol/L (98-107) 11/26/19 05:09 Carbon Dioxide 27.4 mmol/L (21-32) 11/26/19 05:09 BUN 15 mg/dL (7-18) 11/26/19 05:09 Creatinine 1.07 mg/dL (0.55-1.02) H 11/26/19 05:09 Est GFR (MDRD) Af Amer > 60 (>60) 11/26/19 05:09 Est GFR (MDRD) Non-Af 57 (>60) L 11/26/19 05:09 Glucose 108 mg/dL (65-99) H 11/26/19 05:09 Hemoglobin A1c 5.1 % 11/25/19 06:05 Calcium 8.6 mg/dL (8.5-10.1) 11/26/19 05:09 Corrected Calcium TNP 11/26/19 05:09 Magnesium 2.1 mg/dL (1.7-2.9) 11/26/19 05:09 Total Bilirubin 0.50 mg/dL (0.2-1.0) 11/26/19 05:09 AST 12 Units/L (15-37) L 11/26/19 05:09 ALT 25 Units/L (12-78) 11/26/19 05:09 Alkaline Phosphatase 73 Units/L (46-116) 11/26/19 05:09 Total Protein 7.1 g/dL (6.4-8.2) 11/26/19 05:09 Albumin 3.4 g/dL (3.4-5.0) 11/26/19 05:09 Globulin 3.7 g/dL (2.5-4.5) 11/26/19 05:09 Albumin/Globulin Ratio 0.9 Ratio (1.1-2.1) L 11/26/19 05:09 Triglycerides 254 mg/dL (0-150) H 11/25/19 06:05 Cholesterol 207 mg/dL (0-200) H 11/25/19 06:05 LDL Cholesterol, Calc 117 mg/dL (0-100) H 11/25/19 06:05 HDL Cholesterol 39 mg/dL (40-60) L 11/25/19 06:05 Cholesterol/HDL Ratio 5.3 (0.0-5.0) H 11/25/19 06:05 Amylase 28 Units/L (25-115) 11/25/19 06:05 Amylase 28 Units/L (25-115) 11/25/19 06:05 Lipase 148 Units/L (73-393) 11/25/19 06:05 Lipase 149 Units/L (73-393) 11/25/19 06:05 Specimen Type Clean catch urine 11/25/19 08:56 Urine Color Yellow (YELLOW) 11/25/19 08:56 Urine Appearance Hazy (CLEAR) 11/25/19 08:56 Urine pH 6.5 (5.0 - 8.0) 11/25/19 08:56 Ur Specific [place] 1.005 (1.000-1.030) 11/25/19 08:56 Urine Protein Negative (NEGATIVE) 11/25/19 08:56 Urine Glucose (UA) Negative (NEGATIVE) 11/25/19 08:56 Urine Ketones Negative (NEGATIVE) 11/25/19 08:56 Urine Occult Blood 3+ (NEGATIVE) 11/25/19 08:56 Urine Nitrite Negative (NEGATIVE) 11/25/19 08:56 Urine Bilirubin Negative (NEGATIVE) 11/25/19 08:56 Urine Urobilinogen Normal (NORMAL) 11/25/19 08:56 Ur Leukocyte Esterase Negative (NEGATIVE) 11/25/19 08:56 Urine RBC 3-5 /HPF (0-3) A 11/25/19 08:56 Urine WBC None seen /HPF (0-5) 11/25/19 08:56 Ur Squamous Epith Cells Few /HPF (NEGATIVE) 11/25/19 08:56 Urine Bacteria Negative /HPF (NEGATIVE) 11/25/19 08:56 Ur Culture Indicated? No/not indicated 11/25/19 08:56 Urine Opiates Screen Positive (NEG=<300) A 11/25/19 17:35 Urine Methadone Screen Negative (NEG=<300) 11/25/19 17:35 Ur Barbiturates Screen Negative (NEG=<200) 11/25/19 17:35 Ur Phencyclidine Scrn Negative (NEG=<25) 11/25/19 17:35 Ur Amphetamines Screen Negative (NEG=<1000) 11/25/19 17:35 U Benzodiazepines Scrn Positive (NEG=<200) A 11/25/19 17:35 Urine Cocaine Screen Negative (NEG=<300) 11/25/19 17:35 U Marijuana (THC) Screen Positive (NEG=<50) A 11/25/19 17:35 Ethyl Alcohol mg/dL < 3 mg/dL (0-19.9) 11/25/19 06:05 Plan (1) Acute pancreatitis: Status: Acute Plan: NPO, IVF, pain control. Continue to monitor and follow up labs. (2) Hypertension: Status: Acute Plan: Restart home medications (3) THOM (generalized anxiety disorder): Status: Acute Plan: Home medications (4) DDD (degenerative disc disease): Status: Acute Plan: Holding Percocet, pt has morphine prn ordered for pain control. (5) Hypokalemia: Status: Acute
[2019-11-26] MEDS: ZOFRAN INJ 4 MG VIAL IVP PRN ×2 (10:30→19:00)
[2019-11-26] MEDS ORDERED: PHENERGAN INJ 25 MG IM ONE ×2 (11:42→12:01)
--- NOTE | 2019-11-26 16:08 | DR.PROGNOT ---
Hospital Progress Notes - Progress Note for Day of: Progress Note Date: 11/26/19 - Chief Complaint Chief Complaint: still c/o upper abdominal pain , no vomiting . US showed fatty liver with slight dilated hepatic ducts , no clear Gallstones . - Past Medical Family Social History Past Med/Fam/Surg Hx: No changes since H&P Allergies: Allergies No Known Drug Allergies Allergy (Verified 11/25/19 12:58) - Review Of Systems ROS: No change since H&P - Vital Signs Vital Signs: Temperature 98.3 F Pulse Rate [Right Brachial] 59 Pulse Rate 69 Respiratory Rate 20 Blood Pressure [Left Arm] 117/55 Blood Pressure [Right Arm] 181/83 Blood Pressure 187/86 O2 Sat by Pulse Oximetry 95 - Physical Exam Oriented: Normal Eyes: Normal Ear: Normal Nose: Normal Respiratory: Normal Cardiovascular: Normal : Normal GI:Auscultation: Normal GI:Palpation: Normal GI: Tenderness: Epigastric, Periumbilical Skin: Normal Musculoskeletal: Normal Psychiatric: Normal Mood Description: Calm Speech Pattern: Clear, Appropriate - Laboratory and Diagnostics Result Diagrams: 11/26/19 05:09 11/26/19 05:09 Labs: Laboratory WBC 7.5 X10^3/uL (3.6-10.0) 11/26/19 05:09 RBC 3.91 X10^6/uL (3.5-5.4) 11/26/19 05:09 Hgb 12.9 g/dL (12.0-16.0) 11/26/19 05:09 Hct 35.3 % (36.0-47.0) L 11/26/19 05:09 MCV 90.2 fL (80.0-100.0) 11/26/19 05:09 MCH 33.0 pg (27.0-34.0) 11/26/19 05:09 MCHC 36.5 g/dL (33.0-35.0) H 11/26/19 05:09 RDW 12.4 % (11.6-16.5) 11/26/19 05:09 Plt Count 229 X10^3/uL (150.0-450.0) 11/26/19 05:09 MPV 9.3 fL (7.4-11.0) 11/26/19 05:09 Neut % (Auto) 56.1 % (42.0-75.0) 11/26/19 05:09 Lymph % (Auto) 32.4 % (21.0-51.0) 11/26/19 05:09 [place] % (Auto) 8.1 % (0.0-13.0) 11/26/19 05:09 Eos % (Auto) 2.6 % (0.9-2.9) 11/26/19 05:09 Baso % (Auto) 0.8 % (0.2-1.0) 11/26/19 05:09 Neut # (Auto) 4.2 x10^3/uL (2.2-4.8) 11/26/19 05:09 Lymph # (Auto) 2.4 X10^3/uL (1.3-2.9) 11/26/19 05:09 [place] # (Auto) 0.6 x10^3/uL (0.3-0.8) 11/26/19 05:09 Eos # (Auto) 0.2 x10^3/uL (0.0-0.2) 11/26/19 05:09 Baso # (Auto) 0.1 X10^3/uL (0.0-0.1) 11/26/19 05:09 Absolute Nucleated RBC 0.0 /100WBC 11/26/19 05:09 Sodium 140 mmol/L (136-145) 11/26/19 05:09 Corrected Sodium TNP 11/26/19 05:09 Potassium 3.1 mmol/L (3.5-5.1) L 11/26/19 05:09 Chloride 104 mmol/L (98-107) 11/26/19 05:09 Carbon Dioxide 27.4 mmol/L (21-32) 11/26/19 05:09 BUN 15 mg/dL (7-18) 11/26/19 05:09 Creatinine 1.07 mg/dL (0.55-1.02) H 11/26/19 05:09 Est GFR (MDRD) Af Amer > 60 (>60) 11/26/19 05:09 Est GFR (MDRD) Non-Af 57 (>60) L 11/26/19 05:09 Glucose 108 mg/dL (65-99) H 11/26/19 05:09 Hemoglobin A1c 5.1 % 11/25/19 06:05 Calcium 8.6 mg/dL (8.5-10.1) 11/26/19 05:09 Corrected Calcium TNP 11/26/19 05:09 Magnesium 2.1 mg/dL (1.7-2.9) 11/26/19 05:09 Total Bilirubin 0.50 mg/dL (0.2-1.0) 11/26/19 05:09 AST 12 Units/L (15-37) L 11/26/19 05:09 ALT 25 Units/L (12-78) 11/26/19 05:09 Alkaline Phosphatase 73 Units/L (46-116) 11/26/19 05:09 Total Protein 7.1 g/dL (6.4-8.2) 11/26/19 05:09 Albumin 3.4 g/dL (3.4-5.0) 11/26/19 05:09 Globulin 3.7 g/dL (2.5-4.5) 11/26/19 05:09 Albumin/Globulin Ratio 0.9 Ratio (1.1-2.1) L 11/26/19 05:09 Triglycerides 254 mg/dL (0-150) H 11/25/19 06:05 Cholesterol 207 mg/dL (0-200) H 11/25/19 06:05 LDL Cholesterol, Calc 117 mg/dL (0-100) H 11/25/19 06:05 HDL Cholesterol 39 mg/dL (40-60) L 11/25/19 06:05 Cholesterol/HDL Ratio 5.3 (0.0-5.0) H 11/25/19 06:05 Amylase 28 Units/L (25-115) 11/25/19 06:05 Amylase 28 Units/L (25-115) 11/25/19 06:05 Lipase 148 Units/L (73-393) 11/25/19 06:05 Lipase 149 Units/L (73-393) 11/25/19 06:05 Specimen Type Clean catch urine 11/25/19 08:56 Urine Color Yellow (YELLOW) 11/25/19 08:56 Urine Appearance Hazy (CLEAR) 11/25/19 08:56 Urine pH 6.5 (5.0 - 8.0) 11/25/19 08:56 Ur Specific [place] 1.005 (1.000-1.030) 11/25/19 08:56 Urine Protein Negative (NEGATIVE) 11/25/19 08:56 Urine Glucose (UA) Negative (NEGATIVE) 11/25/19 08:56 Urine Ketones Negative (NEGATIVE) 11/25/19 08:56 Urine Occult Blood 3+ (NEGATIVE) 11/25/19 08:56 Urine Nitrite Negative (NEGATIVE) 11/25/19 08:56 Urine Bilirubin Negative (NEGATIVE) 11/25/19 08:56 Urine Urobilinogen Normal (NORMAL) 11/25/19 08:56 Ur Leukocyte Esterase Negative (NEGATIVE) 11/25/19 08:56 Urine RBC 3-5 /HPF (0-3) A 11/25/19 08:56 Urine WBC None seen /HPF (0-5) 11/25/19 08:56 Ur Squamous Epith Cells Few /HPF (NEGATIVE) 11/25/19 08:56 Urine Bacteria Negative /HPF (NEGATIVE) 11/25/19 08:56 Ur Culture Indicated? No/not indicated 11/25/19 08:56 Urine Opiates Screen Positive (NEG=<300) A 11/25/19 17:35 Urine Methadone Screen Negative (NEG=<300) 11/25/19 17:35 Ur Barbiturates Screen Negative (NEG=<200) 11/25/19 17:35 Ur Phencyclidine Scrn Negative (NEG=<25) 11/25/19 17:35 Ur Amphetamines Screen Negative (NEG=<1000) 11/25/19 17:35 U Benzodiazepines Scrn Positive (NEG=<200) A 11/25/19 17:35 Urine Cocaine Screen Negative (NEG=<300) 11/25/19 17:35 U Marijuana (THC) Screen Positive (NEG=<50) A 11/25/19 17:35 Ethyl Alcohol mg/dL < 3 mg/dL (0-19.9) 11/25/19 06:05 - Assessment and Plan 1: subsiding acute pancreatitis . cholecystitis . alcohol and tobaco abuse. for biliary scan in am .. - Problem Patient Problems: Patient Problems Hypokalemia (Acute) E87.6 DDD (degenerative disc disease) (Acute) THOM (generalized anxiety disorder) (Acute) F41.1 Hypertension (Acute) I10 Abdominal pain (Acute) R10.9 Acute pancreatitis (Acute) K85.90
[2019-11-27] MEDS: D5 1/2 NS 1000 ML 1,000 ML IV SCH ×4 (01:13→18:07)
[2019-11-27 05:45] LABS: BASOPHILS % (AUTO) 0.6 % (0.2-1.0); EOSINOPHILS # (AUTO) 0.3 x10^3/uL (0.0-0.2); EOSINOPHILS % (AUTO) 4.3 % (0.9-2.9); HEMATOCRIT 35.8 % (36.0-47.0); HEMOGLOBIN 12.8 g/dL (12.0-16.0); LYMPHOCYTES # (AUTO) 2.6 X10^3/uL (1.3-2.9); LYMPHOCYTES % (AUTO) 36.4 % (21.0-51.0); MEAN CORPUSCULAR HEMOGLOBIN 32.5 pg (27.0-34.0); MEAN CORPUSCULAR HGB CONC 35.7 g/dL (33.0-35.0); MEAN CORPUSCULAR VOLUME 91.1 fL (80.0-100.0); MEAN PLATELET VOLUME 8.9 fL (7.4-11.0); MONOCYTES # (AUTO) 0.6 x10^3/uL (0.3-0.8); MONOCYTES % (AUTO) 8.5 % (0.0-13.0); NEUTROPHILS # (AUTO) 3.5 x10^3/uL (2.2-4.8); NEUTROPHILS % (AUTO) 50.2 % (42.0-75.0); PLATELET COUNT 246 X10^3/uL (150.0-450.0); RED BLOOD COUNT 3.93 X10^6/uL (3.5-5.4); RED CELL DISTRIBUTION WIDTH 12.5 % (11.6-16.5)
[2019-11-27 06:05] LABS: ALANINE AMINOTRANSFERASE 27 Units/L (12-78); ALBUMIN 3.3 g/dL (3.4-5.0); ALKALINE PHOSPHATASE 67 Units/L (46-116); ASPARTATE AMINO TRANSFERASE 14 Units/L (15-37); BLOOD UREA NITROGEN 11 mg/dL (7-18); CALCIUM 8.6 mg/dL (8.5-10.1); CHLORIDE 105 mmol/L (98-107); COR CA(FOR HYPOALB) 9.2 mg/dL (8.5-10.1); COR NA(FOR HYPERGLY) 140 mmol/L (136-145); CREATININE 1.21 mg/dL (0.55-1.02); SODIUM 140 mmol/L (136-145); TOTAL PROTEIN 7.2 g/dL (6.4-8.2); eGFR NON BLACK RACES 50 (>60)
[2019-11-27] MEDS: XANAX PO SCH ×2 (09:14→21:31)
[2019-11-27] MEDS: NORVASC TAB 10 MG PO SCH (09:14)
[2019-11-27] MEDS: ZANAFLEX PO SCH ×2 (09:14→21:31)
[2019-11-27] MEDS: ZESTORETIC 20/25 MG PO SCH (09:15)
[2019-11-27] MEDS: NORCO 5/325 MG TAB PO PRN ×2 (09:15→19:15)
--- NOTE | 2019-11-27 12:32 | PCM.PROG ---
Progress Note Progress Note for Day of Date of Exam: 11/27/19 Subjective Subjective: Pt is a 54 yo f admitted for acute pancreatitis. Her pain is controlled on current regiment. She did sleep a lot yesterday and is having some abdominal tenderness and nausea. Her K has normalized. She is scheduled by surgery to have HIDA today. Depending on impression, can consider starting CLD and advancing as tolerated. Continue to monitor and follow morning labs. Past Medical Family Social History Past Med/Fam/Surg Hx: No changes since H&P Allergies: Allergies No Known Drug Allergies Allergy (Verified 11/25/19 12:58) Review of Systems ROS: No change since H&P Vital Signs and I&O's Vital Signs: Temperature 98.2 F Pulse Rate [Right Brachial] 63 Pulse Rate 69 Respiratory Rate 18 Blood Pressure [Left Arm] 113/63 Blood Pressure [Right Arm] 181/83 Blood Pressure 187/86 O2 Sat by Pulse Oximetry 98 Intake and Output: Intake & Output 11/24/19 11/25/19 11/26/19 11/27/19 23:59 23:59 23:59 23:59 Intake Total 1472 / 1472 3042 / 3042 836 / 836 Balance 1472 / 1472 3042 / 3042 836 / 836 Physical Exam Oriented: Normal Eyes: Normal Ear: Normal Nose: Normal Respiratory: Normal Cardiovascular: Normal : Normal Auscultation: Bowel Sounds: Normal Tenderness: Epigastric and Periumbilical Skin: Normal Musculoskeletal: Normal Psychiatric: Normal Mood Description: Calm Speech Pattern: Clear and Appropriate Laboratory and Diagnostics Result Diagrams: 11/27/19 05:11 11/27/19 05:11 Labs: Laboratory WBC 7.0 X10^3/uL (3.6-10.0) 11/27/19 05:11 RBC 3.93 X10^6/uL (3.5-5.4) 11/27/19 05:11 Hgb 12.8 g/dL (12.0-16.0) 11/27/19 05:11 Hct 35.8 % (36.0-47.0) L 11/27/19 05:11 MCV 91.1 fL (80.0-100.0) 11/27/19 05:11 MCH 32.5 pg (27.0-34.0) 11/27/19 05:11 MCHC 35.7 g/dL (33.0-35.0) H 11/27/19 05:11 RDW 12.5 % (11.6-16.5) 11/27/19 05:11 Plt Count 246 X10^3/uL (150.0-450.0) 11/27/19 05:11 MPV 8.9 fL (7.4-11.0) 11/27/19 05:11 Neut % (Auto) 50.2 % (42.0-75.0) 11/27/19 05:11 Lymph % (Auto) 36.4 % (21.0-51.0) 11/27/19 05:11 [place] % (Auto) 8.5 % (0.0-13.0) 11/27/19 05:11 Eos % (Auto) 4.3 % (0.9-2.9) H 11/27/19 05:11 Baso % (Auto) 0.6 % (0.2-1.0) 11/27/19 05:11 Neut # (Auto) 3.5 x10^3/uL (2.2-4.8) 11/27/19 05:11 Lymph # (Auto) 2.6 X10^3/uL (1.3-2.9) 11/27/19 05:11 [place] # (Auto) 0.6 x10^3/uL (0.3-0.8) 11/27/19 05:11 Eos # (Auto) 0.3 x10^3/uL (0.0-0.2) H 11/27/19 05:11 Baso # (Auto) 0.0 X10^3/uL (0.0-0.1) 11/27/19 05:11 Absolute Nucleated RBC 0.1 /100WBC 11/27/19 05:11 Sodium 140 mmol/L (136-145) 11/27/19 05:11 Corrected Sodium 140 mmol/L (136-145) 11/27/19 05:11 Potassium 3.6 mmol/L (3.5-5.1) 11/27/19 05:11 Chloride 105 mmol/L (98-107) 11/27/19 05:11 Carbon Dioxide 29.0 mmol/L (21-32) 11/27/19 05:11 BUN 11 mg/dL (7-18) 11/27/19 05:11 Creatinine 1.21 mg/dL (0.55-1.02) H 11/27/19 05:11 Est GFR (MDRD) Af Amer > 60 (>60) 11/27/19 05:11 Est GFR (MDRD) Non-Af 50 (>60) L 11/27/19 05:11 Glucose 113 mg/dL (65-99) H 11/27/19 05:11 Hemoglobin A1c 5.1 % 11/25/19 06:05 Calcium 8.6 mg/dL (8.5-10.1) 11/27/19 05:11 Corrected Calcium 9.2 mg/dL (8.5-10.1) 11/27/19 05:11 Magnesium 2.1 mg/dL (1.7-2.9) 11/26/19 05:09 Total Bilirubin 0.30 mg/dL (0.2-1.0) 11/27/19 05:11 AST 14 Units/L (15-37) L 11/27/19 05:11 ALT 27 Units/L (12-78) 11/27/19 05:11 Alkaline Phosphatase 67 Units/L (46-116) 11/27/19 05:11 Total Protein 7.2 g/dL (6.4-8.2) 11/27/19 05:11 Albumin 3.3 g/dL (3.4-5.0) L 11/27/19 05:11 Globulin 3.9 g/dL (2.5-4.5) 11/27/19 05:11 Albumin/Globulin Ratio 0.8 Ratio (1.1-2.1) L 11/27/19 05:11 Triglycerides 254 mg/dL (0-150) H 11/25/19 06:05 Cholesterol 207 mg/dL (0-200) H 11/25/19 06:05 LDL Cholesterol, Calc 117 mg/dL (0-100) H 11/25/19 06:05 HDL Cholesterol 39 mg/dL (40-60) L 11/25/19 06:05 Cholesterol/HDL Ratio 5.3 (0.0-5.0) H 11/25/19 06:05 Amylase 28 Units/L (25-115) 11/25/19 06:05 Amylase 28 Units/L (25-115) 11/25/19 06:05 Lipase 148 Units/L (73-393) 11/25/19 06:05 Lipase 149 Units/L (73-393) 11/25/19 06:05 Specimen Type Clean catch urine 11/25/19 08:56 Urine Color Yellow (YELLOW) 11/25/19 08:56 Urine Appearance Hazy (CLEAR) 11/25/19 08:56 Urine pH 6.5 (5.0 - 8.0) 11/25/19 08:56 Ur Specific [place] 1.005 (1.000-1.030) 11/25/19 08:56 Urine Protein Negative (NEGATIVE) 11/25/19 08:56 Urine Glucose (UA) Negative (NEGATIVE) 11/25/19 08:56 Urine Ketones Negative (NEGATIVE) 11/25/19 08:56 Urine Occult Blood 3+ (NEGATIVE) 11/25/19 08:56 Urine Nitrite Negative (NEGATIVE) 11/25/19 08:56 Urine Bilirubin Negative (NEGATIVE) 11/25/19 08:56 Urine Urobilinogen Normal (NORMAL) 11/25/19 08:56 Ur Leukocyte Esterase Negative (NEGATIVE) 11/25/19 08:56 Urine RBC 3-5 /HPF (0-3) A 11/25/19 08:56 Urine WBC None seen /HPF (0-5) 11/25/19 08:56 Ur Squamous Epith Cells Few /HPF (NEGATIVE) 11/25/19 08:56 Urine Bacteria Negative /HPF (NEGATIVE) 11/25/19 08:56 Ur Culture Indicated? No/not indicated 11/25/19 08:56 Urine Opiates Screen Positive (NEG=<300) A 11/25/19 17:35 Urine Methadone Screen Negative (NEG=<300) 11/25/19 17:35 Ur Barbiturates Screen Negative (NEG=<200) 11/25/19 17:35 Ur Phencyclidine Scrn Negative (NEG=<25) 11/25/19 17:35 Ur Amphetamines Screen Negative (NEG=<1000) 11/25/19 17:35 U Benzodiazepines Scrn Positive (NEG=<200) A 11/25/19 17:35 Urine Cocaine Screen Negative (NEG=<300) 11/25/19 17:35 U Marijuana (THC) Screen Positive (NEG=<50) A 11/25/19 17:35 Ethyl Alcohol mg/dL < 3 mg/dL (0-19.9) 11/25/19 06:05 Plan (1) Acute pancreatitis: Status: Acute Plan: NPO, IVF, pain control. HIDA scan today Continue to monitor and follow up labs. (2) Hypertension: Status: Acute Plan: Restart home medications (3) THOM (generalized anxiety disorder): Status: Acute Plan: Home medications (4) DDD (degenerative disc disease): Status: Acute Plan: Holding Percocet, pt has morphine prn ordered for pain control. (5) Hypokalemia: Status: Acute
--- NOTE | 2019-11-27 13:40 | NM ---
HISTORY: [Right upper quadrant pain and abdominal pain.].EXAM: Nuclear Medicine HIDA ExamComparison is made with the prior ultrasound examination dated November 26, 2019.Technique: Multiple scintigraphic images of the abdomen were obtained the intravenous administration of [5.4] mCi of technetium labeled [Choletec].Following distention of the gallbladder with radiotracer a bottle of Ensure was given. An estimated gallbladder ejection fraction was calculated based on this physiologic response.Findings:Homogeneous uptake of radiotracer is seen throughout the liver. The intrabiliary ductal system is observed normally. The common hepatic and common bile duct grossly appear unremarkable with normal biliary-bowel transit. The gallbladder is observed to fill normally without evidence for acute cholecystitis. After the administration of ensure, however, an abnormally low gallbladder ejection fraction of [4]% (normal > 35%) is observed. Although many etiologies (certain medications, cholangitis, pancreatitis, sepsis, etc.) can account for a low gallbladder ejection fraction, in the outpatient setting, the most common etiology is chronic cholecystitis. Please correlate with patient's medical and clinical presentation, however, for assurance.IMPRESSION:1. Hepatobiliary imaging study demonstrates no evidence for acute hepatic or acute hepatobiliary disease/dysfunction, acute cholecystitis/cystic duct obstruction, or biliary leak/biloma formation.2. Low gallbladder ejection fraction of [4, most likely reflecting chronic cholecystitis, as discussed above.Electronically signed by: ADRIANE LUKE III (Nov 27, 2019 13:39:59)
[2019-11-27] MEDS ORDERED: SUPRANE ONE (13:46)
[2019-11-27] MEDS ORDERED: ROBINUL ONE (13:46)
[2019-11-27] MEDS ORDERED: NORCURON INJ 10 MG VIAL ONE (13:46)
[2019-11-27] MEDS ORDERED: QUELICIN (OR ANECTINE) ONE (13:46)
[2019-11-27] MEDS ORDERED: ZOFRAN INJ 4 MG VIAL ONE (13:46)
[2019-11-27] MEDS ORDERED: NEOSTIGMINE INJ ONE (13:46)
[2019-11-27] MEDS ORDERED: XYLOCAINE 2 % (PLAIN) ONE (13:46)
[2019-11-27] MEDS ORDERED: VERSED ONE (13:46)
[2019-11-27] MEDS ORDERED: LTA KIT LIDOCAINE 4% ONE (13:46)
[2019-11-27] MEDS ORDERED: TORADOL 30 MG VIAL ONE (13:46)
[2019-11-27] MEDS ORDERED: NS IRRIGATION 3000 ML ONE (14:46)
--- NOTE | 2019-11-27 16:24 | DR.PROGNOT ---
Hospital Progress Notes - Progress Note for Day of: Progress Note Date: 11/27/19 - Chief Complaint Chief Complaint: still c/o RUQ upper abdominal pain , no vomiting . US showed fatty liver with slight dilated hepatic ducts , no clear Gallstones . HIDA scan showed low EF 4% with reproduction of the symptoms . - Past Medical Family Social History Past Med/Fam/Surg Hx: No changes since H&P Allergies: Allergies No Known Drug Allergies Allergy (Verified 11/25/19 12:58) - Review Of Systems ROS: No change since H&P - Vital Signs Vital Signs: Temperature 98.1 F Pulse Rate [Right Brachial] 72 Pulse Rate 69 Respiratory Rate 18 Blood Pressure [Left Arm] 132/77 Blood Pressure [Right Arm] 181/83 Blood Pressure 187/86 O2 Sat by Pulse Oximetry 100 - Physical Exam Oriented: Normal Eyes: Normal Ear: Normal Nose: Normal Respiratory: Normal Cardiovascular: Normal : Normal GI:Auscultation: Normal GI:Palpation: Normal GI: Tenderness: Epigastric, Periumbilical Skin: Normal Musculoskeletal: Normal Psychiatric: Normal Mood Description: Calm Speech Pattern: Clear, Appropriate - Laboratory and Diagnostics Result Diagrams: 11/27/19 05:11 11/27/19 05:11 Labs: Laboratory WBC 7.0 X10^3/uL (3.6-10.0) 11/27/19 05:11 RBC 3.93 X10^6/uL (3.5-5.4) 11/27/19 05:11 Hgb 12.8 g/dL (12.0-16.0) 11/27/19 05:11 Hct 35.8 % (36.0-47.0) L 11/27/19 05:11 MCV 91.1 fL (80.0-100.0) 11/27/19 05:11 MCH 32.5 pg (27.0-34.0) 11/27/19 05:11 MCHC 35.7 g/dL (33.0-35.0) H 11/27/19 05:11 RDW 12.5 % (11.6-16.5) 11/27/19 05:11 Plt Count 246 X10^3/uL (150.0-450.0) 11/27/19 05:11 MPV 8.9 fL (7.4-11.0) 11/27/19 05:11 Neut % (Auto) 50.2 % (42.0-75.0) 11/27/19 05:11 Lymph % (Auto) 36.4 % (21.0-51.0) 11/27/19 05:11 [place] % (Auto) 8.5 % (0.0-13.0) 11/27/19 05:11 Eos % (Auto) 4.3 % (0.9-2.9) H 11/27/19 05:11 Baso % (Auto) 0.6 % (0.2-1.0) 11/27/19 05:11 Neut # (Auto) 3.5 x10^3/uL (2.2-4.8) 11/27/19 05:11 Lymph # (Auto) 2.6 X10^3/uL (1.3-2.9) 11/27/19 05:11 [place] # (Auto) 0.6 x10^3/uL (0.3-0.8) 11/27/19 05:11 Eos # (Auto) 0.3 x10^3/uL (0.0-0.2) H 11/27/19 05:11 Baso # (Auto) 0.0 X10^3/uL (0.0-0.1) 11/27/19 05:11 Absolute Nucleated RBC 0.1 /100WBC 11/27/19 05:11 Sodium 140 mmol/L (136-145) 11/27/19 05:11 Corrected Sodium 140 mmol/L (136-145) 11/27/19 05:11 Potassium 3.6 mmol/L (3.5-5.1) 11/27/19 05:11 Chloride 105 mmol/L (98-107) 11/27/19 05:11 Carbon Dioxide 29.0 mmol/L (21-32) 11/27/19 05:11 BUN 11 mg/dL (7-18) 11/27/19 05:11 Creatinine 1.21 mg/dL (0.55-1.02) H 11/27/19 05:11 Est GFR (MDRD) Af Amer > 60 (>60) 11/27/19 05:11 Est GFR (MDRD) Non-Af 50 (>60) L 11/27/19 05:11 Glucose 113 mg/dL (65-99) H 11/27/19 05:11 Hemoglobin A1c 5.1 % 11/25/19 06:05 Calcium 8.6 mg/dL (8.5-10.1) 11/27/19 05:11 Corrected Calcium 9.2 mg/dL (8.5-10.1) 11/27/19 05:11 Magnesium 2.1 mg/dL (1.7-2.9) 11/26/19 05:09 Total Bilirubin 0.30 mg/dL (0.2-1.0) 11/27/19 05:11 AST 14 Units/L (15-37) L 11/27/19 05:11 ALT 27 Units/L (12-78) 11/27/19 05:11 Alkaline Phosphatase 67 Units/L (46-116) 11/27/19 05:11 Total Protein 7.2 g/dL (6.4-8.2) 11/27/19 05:11 Albumin 3.3 g/dL (3.4-5.0) L 11/27/19 05:11 Globulin 3.9 g/dL (2.5-4.5) 11/27/19 05:11 Albumin/Globulin Ratio 0.8 Ratio (1.1-2.1) L 11/27/19 05:11 Triglycerides 254 mg/dL (0-150) H 11/25/19 06:05 Cholesterol 207 mg/dL (0-200) H 11/25/19 06:05 LDL Cholesterol, Calc 117 mg/dL (0-100) H 11/25/19 06:05 HDL Cholesterol 39 mg/dL (40-60) L 11/25/19 06:05 Cholesterol/HDL Ratio 5.3 (0.0-5.0) H 11/25/19 06:05 Amylase 28 Units/L (25-115) 11/25/19 06:05 Amylase 28 Units/L (25-115) 11/25/19 06:05 Lipase 148 Units/L (73-393) 11/25/19 06:05 Lipase 149 Units/L (73-393) 11/25/19 06:05 Specimen Type Clean catch urine 11/25/19 08:56 Urine Color Yellow (YELLOW) 11/25/19 08:56 Urine Appearance Hazy (CLEAR) 11/25/19 08:56 Urine pH 6.5 (5.0 - 8.0) 11/25/19 08:56 Ur Specific [place] 1.005 (1.000-1.030) 11/25/19 08:56 Urine Protein Negative (NEGATIVE) 11/25/19 08:56 Urine Glucose (UA) Negative (NEGATIVE) 11/25/19 08:56 Urine Ketones Negative (NEGATIVE) 11/25/19 08:56 Urine Occult Blood 3+ (NEGATIVE) 11/25/19 08:56 Urine Nitrite Negative (NEGATIVE) 11/25/19 08:56 Urine Bilirubin Negative (NEGATIVE) 11/25/19 08:56 Urine Urobilinogen Normal (NORMAL) 11/25/19 08:56 Ur Leukocyte Esterase Negative (NEGATIVE) 11/25/19 08:56 Urine RBC 3-5 /HPF (0-3) A 11/25/19 08:56 Urine WBC None seen /HPF (0-5) 11/25/19 08:56 Ur Squamous Epith Cells Few /HPF (NEGATIVE) 11/25/19 08:56 Urine Bacteria Negative /HPF (NEGATIVE) 11/25/19 08:56 Ur Culture Indicated? No/not indicated 11/25/19 08:56 Urine Opiates Screen Positive (NEG=<300) A 11/25/19 17:35 Urine Methadone Screen Negative (NEG=<300) 11/25/19 17:35 Ur Barbiturates Screen Negative (NEG=<200) 11/25/19 17:35 Ur Phencyclidine Scrn Negative (NEG=<25) 11/25/19 17:35 Ur Amphetamines Screen Negative (NEG=<1000) 11/25/19 17:35 U Benzodiazepines Scrn Positive (NEG=<200) A 11/25/19 17:35 Urine Cocaine Screen Negative (NEG=<300) 11/25/19 17:35 U Marijuana (THC) Screen Positive (NEG=<50) A 11/25/19 17:35 Ethyl Alcohol mg/dL < 3 mg/dL (0-19.9) 11/25/19 06:05 - Assessment and Plan 1: subsiding acute pancreatitis . cholecystitis . alcohol and tobaco abuse. for lap cira jadiel AM. - Problem Patient Problems: Patient Problems Hypokalemia (Acute) E87.6 DDD (degenerative disc disease) (Acute) THOM (generalized anxiety disorder) (Acute) F41.1 Hypertension (Acute) I10 Abdominal pain (Acute) R10.9 Acute pancreatitis (Acute) K85.90
[2019-11-27] MEDS: MORPHINE SULFATE INJ 2 MG INJ IVP PRN ×2 (17:23→21:32)
--- NOTE | 2019-11-27 18:35 | RAD ---
CHEST, 1 VIEWHISTORY: PRE-OP: GBStudy: PA and lateral views of the chest.Comparison:NoneFindings:The cardiomediastinal silhouette is normal.No focal consolidations, pleural effusions or pneumothorax. Osseous structures demonstrate no acute abnormality.IMPRESSION:1. No acute cardiopulmonary process.Electronically signed by: JEN RUSHING (Nov 27, 2019 18:34:16)
[2019-11-28] MEDS: D5 1/2 NS 1000 ML 1,000 ML IV SCH ×2 (00:24→09:45)
[2019-11-28 06:55] LABS: BASOPHILS % (AUTO) 0.5 % (0.2-1.0); EOSINOPHILS # (AUTO) 0.2 x10^3/uL (0.0-0.2); EOSINOPHILS % (AUTO) 4.2 % (0.9-2.9); HEMOGLOBIN 12.6 g/dL (12.0-16.0); LYMPHOCYTES # (AUTO) 2.1 X10^3/uL (1.3-2.9); LYMPHOCYTES % (AUTO) 36.6 % (21.0-51.0); MEAN CORPUSCULAR HEMOGLOBIN 32.1 pg (27.0-34.0); MEAN CORPUSCULAR HGB CONC 35.8 g/dL (33.0-35.0); MEAN CORPUSCULAR VOLUME 89.6 fL (80.0-100.0); MEAN PLATELET VOLUME 8.4 fL (7.4-11.0); MONOCYTES # (AUTO) 0.4 x10^3/uL (0.3-0.8); MONOCYTES % (AUTO) 7.2 % (0.0-13.0); NEUTROPHILS # (AUTO) 2.9 x10^3/uL (2.2-4.8); NEUTROPHILS % (AUTO) 51.5 % (42.0-75.0); PLATELET COUNT 245 X10^3/uL (150.0-450.0); RED BLOOD COUNT 3.91 X10^6/uL (3.5-5.4); RED CELL DISTRIBUTION WIDTH 12.3 % (11.6-16.5); WHITE BLOOD COUNT 5.7 X10^3/uL (3.6-10.0)
[2019-11-28] MEDS ORDERED: FENTANYL INJ 250 mcg ONE (07:10)
[2019-11-28] MEDS ORDERED: DECADRON INJ ONE (07:10)
[2019-11-28] MEDS ORDERED: DILAUDID INJ ONE ×2 (07:10→08:08)
[2019-11-28 07:11] LABS: BLOOD UREA NITROGEN 9 mg/dL (7-18); CARBON DIOXIDE 27.5 mmol/L (21-32); CHLORIDE 106 mmol/L (98-107); SODIUM 141 mmol/L (136-145); eGFR NON BLACK RACES > 60 (>60)
[2019-11-28 07:12] LABS: ALANINE AMINOTRANSFERASE 27 Units/L (12-78); ALBUMIN 3.4 g/dL (3.4-5.0); ALKALINE PHOSPHATASE 61 Units/L (46-116); ASPARTATE AMINO TRANSFERASE 14 Units/L (15-37); CALCIUM 8.8 mg/dL (8.5-10.1); TOTAL PROTEIN 7.2 g/dL (6.4-8.2)
[2019-11-28] MEDS ORDERED: LR 1000 ML IV 1,000 ML IV ONE (07:30)
[2019-11-28] MEDS ORDERED: ANCEF 1 GRAM IV PREMIX* 2 G/100 ML BAG IV ONE (07:33)
[2019-11-28] MEDS ORDERED: BACTROBAN TOPICAL OINT ONE (07:33)
[2019-11-28] MEDS ORDERED: ZOFRAN INJ 4 MG VIAL IVP PRN (08:46)
[2019-11-28] MEDS ORDERED: DILAUDID INJ IVP PRN (08:46)
[2019-11-28] MEDS ORDERED: REGLAN INJ 10 MG VIAL IVP PRN (08:46)
[2019-11-28] MEDS ORDERED: PHENERGAN INJ 25 MG IM PRN (08:46)
[2019-11-28] MEDS ORDERED: BENADRYL INJ 50 MG VIAL IVP PRN (08:46)
--- NOTE | 2019-11-28 09:33 | PCM.PROG ---
Progress Note Progress Note for Day of Date of Exam: 11/28/19 Subjective Subjective: Pt is a 54 yo f admitted for acute pancreatitis. Her pain is controlled on current regiment. Her HIDA results showed gallbladder low EF 4% c/w chronic cholecystitis. She is scheduled by surgery to have lap cira this morning. Continue to monitor and follow morning labs. Past Medical Family Social History Past Med/Fam/Surg Hx: No changes since H&P Allergies: Allergies No Known Drug Allergies Allergy (Verified 11/25/19 12:58) Review of Systems ROS: No change since H&P Vital Signs and I&O's Vital Signs: Temperature 97.7 F Pulse Rate [Right Brachial] 57 Pulse Rate 65 Respiratory Rate 18 Blood Pressure [Left Arm] 109/58 Blood Pressure [Right Arm] 181/83 Blood Pressure 131/66 O2 Sat by Pulse Oximetry 97 Intake and Output: Intake & Output 11/25/19 11/26/19 11/27/19 11/28/19 23:59 23:59 23:59 23:59 Intake Total 1472 / 1472 3042 / 3042 3028 / 3028 3000 / 3000 Output Total 1470 / 1470 Balance 1472 / 1472 3042 / 3042 3028 / 3028 1530 / 1530 Physical Exam Oriented: Normal Eyes: Normal Ear: Normal Nose: Normal Respiratory: Normal Cardiovascular: Normal : Normal Auscultation: Bowel Sounds: Normal Tenderness: Epigastric and Periumbilical Skin: Normal Musculoskeletal: Normal Psychiatric: Normal Mood Description: Calm Speech Pattern: Clear and Appropriate Laboratory and Diagnostics Result Diagrams: 11/28/19 06:20 11/28/19 06:20 Labs: Laboratory WBC 5.7 X10^3/uL (3.6-10.0) 11/28/19 06:20 RBC 3.91 X10^6/uL (3.5-5.4) 11/28/19 06:20 Hgb 12.6 g/dL (12.0-16.0) 11/28/19 06:20 Hct 35.0 % (36.0-47.0) L 11/28/19 06:20 MCV 89.6 fL (80.0-100.0) 11/28/19 06:20 MCH 32.1 pg (27.0-34.0) 11/28/19 06:20 MCHC 35.8 g/dL (33.0-35.0) H 11/28/19 06:20 RDW 12.3 % (11.6-16.5) 11/28/19 06:20 Plt Count 245 X10^3/uL (150.0-450.0) 11/28/19 06:20 MPV 8.4 fL (7.4-11.0) 11/28/19 06:20 Neut % (Auto) 51.5 % (42.0-75.0) 11/28/19 06:20 Lymph % (Auto) 36.6 % (21.0-51.0) 11/28/19 06:20 [place] % (Auto) 7.2 % (0.0-13.0) 11/28/19 06:20 Eos % (Auto) 4.2 % (0.9-2.9) H 11/28/19 06:20 Baso % (Auto) 0.5 % (0.2-1.0) 11/28/19 06:20 Neut # (Auto) 2.9 x10^3/uL (2.2-4.8) 11/28/19 06:20 Lymph # (Auto) 2.1 X10^3/uL (1.3-2.9) 11/28/19 06:20 [place] # (Auto) 0.4 x10^3/uL (0.3-0.8) 11/28/19 06:20 Eos # (Auto) 0.2 x10^3/uL (0.0-0.2) 11/28/19 06:20 Baso # (Auto) 0.0 X10^3/uL (0.0-0.1) 11/28/19 06:20 Absolute Nucleated RBC 0.1 /100WBC 11/28/19 06:20 Sodium 141 mmol/L (136-145) 11/28/19 06:20 Corrected Sodium TNP 11/28/19 06:20 Potassium 3.5 mmol/L (3.5-5.1) 11/28/19 06:20 Chloride 106 mmol/L (98-107) 11/28/19 06:20 Carbon Dioxide 27.5 mmol/L (21-32) 11/28/19 06:20 BUN 9 mg/dL (7-18) 11/28/19 06:20 Creatinine 0.90 mg/dL (0.55-1.02) 11/28/19 06:20 Est GFR (MDRD) Af Amer > 60 (>60) 11/28/19 06:20 Est GFR (MDRD) Non-Af > 60 (>60) 11/28/19 06:20 Glucose 102 mg/dL (65-99) H 11/28/19 06:20 Hemoglobin A1c 5.1 % 11/25/19 06:05 Calcium 8.8 mg/dL (8.5-10.1) 11/28/19 06:20 Corrected Calcium TNP 11/28/19 06:20 Magnesium 2.1 mg/dL (1.7-2.9) 11/26/19 05:09 Total Bilirubin 0.30 mg/dL (0.2-1.0) 11/28/19 06:20 AST 14 Units/L (15-37) L 11/28/19 06:20 ALT 27 Units/L (12-78) 11/28/19 06:20 Alkaline Phosphatase 61 Units/L (46-116) 11/28/19 06:20 Total Protein 7.2 g/dL (6.4-8.2) 11/28/19 06:20 Albumin 3.4 g/dL (3.4-5.0) 11/28/19 06:20 Globulin 3.8 g/dL (2.5-4.5) 11/28/19 06:20 Albumin/Globulin Ratio 0.9 Ratio (1.1-2.1) L 11/28/19 06:20 Triglycerides 254 mg/dL (0-150) H 11/25/19 06:05 Cholesterol 207 mg/dL (0-200) H 11/25/19 06:05 LDL Cholesterol, Calc 117 mg/dL (0-100) H 11/25/19 06:05 HDL Cholesterol 39 mg/dL (40-60) L 11/25/19 06:05 Cholesterol/HDL Ratio 5.3 (0.0-5.0) H 11/25/19 06:05 Amylase 28 Units/L (25-115) 11/25/19 06:05 Amylase 28 Units/L (25-115) 11/25/19 06:05 Lipase 148 Units/L (73-393) 11/25/19 06:05 Lipase 149 Units/L (73-393) 11/25/19 06:05 Specimen Type Clean catch urine 11/25/19 08:56 Urine Color Yellow (YELLOW) 11/25/19 08:56 Urine Appearance Hazy (CLEAR) 11/25/19 08:56 Urine pH 6.5 (5.0 - 8.0) 11/25/19 08:56 Ur Specific [place] 1.005 (1.000-1.030) 11/25/19 08:56 Urine Protein Negative (NEGATIVE) 11/25/19 08:56 Urine Glucose (UA) Negative (NEGATIVE) 11/25/19 08:56 Urine Ketones Negative (NEGATIVE) 11/25/19 08:56 Urine Occult Blood 3+ (NEGATIVE) 11/25/19 08:56 Urine Nitrite Negative (NEGATIVE) 11/25/19 08:56 Urine Bilirubin Negative (NEGATIVE) 11/25/19 08:56 Urine Urobilinogen Normal (NORMAL) 11/25/19 08:56 Ur Leukocyte Esterase Negative (NEGATIVE) 11/25/19 08:56 Urine RBC 3-5 /HPF (0-3) A 11/25/19 08:56 Urine WBC None seen /HPF (0-5) 11/25/19 08:56 Ur Squamous Epith Cells Few /HPF (NEGATIVE) 11/25/19 08:56 Urine Bacteria Negative /HPF (NEGATIVE) 11/25/19 08:56 Ur Culture Indicated? No/not indicated 11/25/19 08:56 Urine Opiates Screen Positive (NEG=<300) A 11/25/19 17:35 Urine Methadone Screen Negative (NEG=<300) 11/25/19 17:35 Ur Barbiturates Screen Negative (NEG=<200) 11/25/19 17:35 Ur Phencyclidine Scrn Negative (NEG=<25) 11/25/19 17:35 Ur Amphetamines Screen Negative (NEG=<1000) 11/25/19 17:35 U Benzodiazepines Scrn Positive (NEG=<200) A 11/25/19 17:35 Urine Cocaine Screen Negative (NEG=<300) 11/25/19 17:35 U Marijuana (THC) Screen Positive (NEG=<50) A 11/25/19 17:35 Ethyl Alcohol mg/dL < 3 mg/dL (0-19.9) 11/25/19 06:05 Plan (1) Acute pancreatitis: Status: Acute Plan: NPO, IVF, pain control. Continue to monitor and follow up labs. (2) Hypertension: Status: Acute Plan: Restart home medications (3) THOM (generalized anxiety disorder): Status: Acute Plan: Home medications (4) DDD (degenerative disc disease): Status: Acute Plan: Holding Percocet, pt has morphine prn ordered for pain control. (5) Hypokalemia: Status: Acute (6) Chronic cholecystitis: Status: Acute Plan: Lap cira today
[2019-11-28] MEDS: ZESTORETIC 20/25 MG PO SCH (10:25)
[2019-11-28] MEDS: XANAX PO SCH (10:25)
[2019-11-28] MEDS: ZANAFLEX PO SCH (10:26)
[2019-11-28] MEDS: NORVASC TAB 10 MG PO SCH (10:26)
--- NOTE | 2019-11-28 12:04 | W.DIS.FURT ---
Summary of Discharge Discharge Summary of Date Date of Exam: 11/28/19 Admission Date Date of Admission: 11/25/19 Admission Diagnosis Hospital Course: Pt is a 54 y/o f admitted with acute pancreatitis that was noted on CT abd/pelv and later found to have abnormal HIDA scan with gallbladder EF of 4%. She had a successful lap cholecystectomy and on day of discharge all vitals stable, Physical exam unremarkable. Pt instructed to follow up with surgery in 1-2 weeks and pcp in 1 week. Vital Signs: Vital Signs (72 hours) 11/25/19 12:27 11/25/19 12:32 11/25/19 14:29 Temperature Pulse Rate Pulse Rate [Right Brachial] 65 Respiratory Rate 17 20 20 Blood Pressure Blood Pressure [Left Arm] Blood Pressure [Right Arm] 186/89 O2 Sat by Pulse Oximetry 99 11/25/19 14:59 11/25/19 16:00 11/25/19 18:35 Temperature 99.2 F Pulse Rate Pulse Rate [Right Brachial] 80 Respiratory Rate 20 20 20 Blood Pressure Blood Pressure [Left Arm] Blood Pressure [Right Arm] 181/83 O2 Sat by Pulse Oximetry 100 11/25/19 19:00 11/25/19 19:05 11/25/19 19:35 Temperature Pulse Rate Pulse Rate [Right Brachial] Respiratory Rate 20 20 20 Blood Pressure Blood Pressure [Left Arm] Blood Pressure [Right Arm] O2 Sat by Pulse Oximetry 11/25/19 20:00 11/25/19 20:35 11/25/19 22:16 Temperature 97.8 F Pulse Rate Pulse Rate [Right Brachial] 66 Respiratory Rate 20 20 20 Blood Pressure Blood Pressure [Left Arm] 104/61 Blood Pressure [Right Arm] O2 Sat by Pulse Oximetry 99 11/25/19 22:46 11/25/19 23:40 11/26/19 00:00 Temperature 98.3 F Pulse Rate Pulse Rate [Right Brachial] 67 Respiratory Rate 20 18 18 Blood Pressure Blood Pressure [Left Arm] 107/67 Blood Pressure [Right Arm] O2 Sat by Pulse Oximetry 99 11/26/19 00:40 11/26/19 02:15 11/26/19 02:45 Temperature Pulse Rate Pulse Rate [Right Brachial] Respiratory Rate 18 20 18 Blood Pressure Blood Pressure [Left Arm] Blood Pressure [Right Arm] O2 Sat by Pulse Oximetry 11/26/19 04:00 11/26/19 05:00 11/26/19 06:21 Temperature 98.1 F Pulse Rate Pulse Rate [Right Brachial] 65 72 Respiratory Rate 20 20 20 Blood Pressure Blood Pressure [Left Arm] 95/53 113/64 Blood Pressure [Right Arm] O2 Sat by Pulse Oximetry 100 100 11/26/19 06:22 11/26/19 06:52 11/26/19 08:00 Temperature 98.2 F Pulse Rate Pulse Rate [Right Brachial] 59 L Respiratory Rate 20 20 17 Blood Pressure Blood Pressure [Left Arm] 142/68 Blood Pressure [Right Arm] O2 Sat by Pulse Oximetry 100 11/26/19 09:01 11/26/19 10:01 11/26/19 10:25 Temperature Pulse Rate Pulse Rate [Right Brachial] Respiratory Rate 20 20 18 Blood Pressure Blood Pressure [Left Arm] Blood Pressure [Right Arm] O2 Sat by Pulse Oximetry 11/26/19 10:55 11/26/19 12:00 11/26/19 14:09 Temperature 98.3 F Pulse Rate Pulse Rate [Right Brachial] 59 L Respiratory Rate 20 19 20 Blood Pressure Blood Pressure [Left Arm] 117/55 Blood Pressure [Right Arm] O2 Sat by Pulse Oximetry 95 11/26/19 14:39 11/26/19 16:00 11/26/19 16:03 Temperature 98.8 F Pulse Rate Pulse Rate [Right Brachial] 68 Respiratory Rate 20 18 20 Blood Pressure Blood Pressure [Left Arm] 102/50 Blood Pressure [Right Arm] O2 Sat by Pulse Oximetry 96 11/26/19 17:03 11/26/19 19:00 11/26/19 19:30 Temperature Pulse Rate Pulse Rate [Right Brachial] Respiratory Rate 20 20 18 Blood Pressure Blood Pressure [Left Arm] Blood Pressure [Right Arm] O2 Sat by Pulse Oximetry 11/26/19 20:00 11/26/19 21:00 11/26/19 21:57 Temperature 98.6 F Pulse Rate Pulse Rate [Right Brachial] 66 Respiratory Rate 20 18 20 Blood Pressure Blood Pressure [Left Arm] 107/65 Blood Pressure [Right Arm] O2 Sat by Pulse Oximetry 100 11/27/19 00:00 11/27/19 04:00 11/27/19 08:00 Temperature 98.0 F 97.8 F 98.2 F Pulse Rate Pulse Rate [Right Brachial] 57 L 62 63 Respiratory Rate 18 20 20 Blood Pressure Blood Pressure [Left Arm] 78/66 89/51 113/63 Blood Pressure [Right Arm] O2 Sat by Pulse Oximetry 97 96 98 11/27/19 09:15 11/27/19 10:15 11/27/19 16:00 Temperature 98.1 F Pulse Rate Pulse Rate [Right Brachial] 72 Respiratory Rate 18 18 18 Blood Pressure Blood Pressure [Left Arm] 132/77 Blood Pressure [Right Arm] O2 Sat by Pulse Oximetry 100 11/27/19 17:23 11/27/19 17:53 11/27/19 19:15 Temperature Pulse Rate Pulse Rate [Right Brachial] Respiratory Rate 18 18 20 Blood Pressure Blood Pressure [Left Arm] Blood Pressure [Right Arm] O2 Sat by Pulse Oximetry 11/27/19 19:26 11/27/19 20:15 11/27/19 21:32 Temperature 98.6 F Pulse Rate Pulse Rate [Right Brachial] 82 Respiratory Rate 18 18 20 Blood Pressure Blood Pressure [Left Arm] 146/74 Blood Pressure [Right Arm] O2 Sat by Pulse Oximetry 98 11/27/19 22:02 11/27/19 23:53 11/28/19 04:00 Temperature 97.6 F 97.8 F Pulse Rate Pulse Rate [Right Brachial] 68 57 L Respiratory Rate 18 18 16 Blood Pressure Blood Pressure [Left Arm] 89/56 109/58 Blood Pressure [Right Arm] O2 Sat by Pulse Oximetry 97 93 L 11/28/19 07:34 11/28/19 08:41 11/28/19 08:46 Temperature 97.7 F Pulse Rate 86 76 Pulse Rate [Right Brachial] Respiratory Rate 16 20 16 Blood Pressure 164/72 160/70 Blood Pressure [Left Arm] Blood Pressure [Right Arm] O2 Sat by Pulse Oximetry 98 100 11/28/19 08:51 11/28/19 08:56 11/28/19 08:59 Temperature Pulse Rate 74 70 Pulse Rate [Right Brachial] Respiratory Rate 18 18 18 Blood Pressure 163/75 171/77 Blood Pressure [Left Arm] Blood Pressure [Right Arm] O2 Sat by Pulse Oximetry 100 96 11/28/19 09:01 11/28/19 09:06 11/28/19 09:11 Temperature Pulse Rate 71 69 65 Pulse Rate [Right Brachial] Respiratory Rate 18 18 18 Blood Pressure 158/76 145/65 131/66 Blood Pressure [Left Arm] Blood Pressure [Right Arm] O2 Sat by Pulse Oximetry 98 96 97 11/28/19 09:20 11/28/19 09:29 11/28/19 09:35 Temperature 97.6 F 97.5 F L Pulse Rate Pulse Rate [Right Brachial] 73 72 Respiratory Rate 18 17 17 Blood Pressure Blood Pressure [Left Arm] 132/61 127/60 Blood Pressure [Right Arm] O2 Sat by Pulse Oximetry 96 95 11/28/19 09:50 11/28/19 10:05 Temperature 97.9 F 97.9 F Pulse Rate Pulse Rate [Right Brachial] 84 73 Respiratory Rate 18 17 Blood Pressure Blood Pressure [Left Arm] 180/85 142/63 Blood Pressure [Right Arm] O2 Sat by Pulse Oximetry 95 95 Labs: Laboratory Last Values WBC 5.7 X10^3/uL (3.6-10.0) 11/28/19 06:20 RBC 3.91 X10^6/uL (3.5-5.4) 11/28/19 06:20 Hgb 12.6 g/dL (12.0-16.0) 11/28/19 06:20 Hct 35.0 % (36.0-47.0) L 11/28/19 06:20 MCV 89.6 fL (80.0-100.0) 11/28/19 06:20 MCH 32.1 pg (27.0-34.0) 11/28/19 06:20 MCHC 35.8 g/dL (33.0-35.0) H 11/28/19 06:20 RDW 12.3 % (11.6-16.5) 11/28/19 06:20 Plt Count 245 X10^3/uL (150.0-450.0) 11/28/19 06:20 MPV 8.4 fL (7.4-11.0) 11/28/19 06:20 Neut % (Auto) 51.5 % (42.0-75.0) 11/28/19 06:20 Lymph % (Auto) 36.6 % (21.0-51.0) 11/28/19 06:20 [place] % (Auto) 7.2 % (0.0-13.0) 11/28/19 06:20 Eos % (Auto) 4.2 % (0.9-2.9) H 11/28/19 06:20 Baso % (Auto) 0.5 % (0.2-1.0) 11/28/19 06:20 Neut # (Auto) 2.9 x10^3/uL (2.2-4.8) 11/28/19 06:20 Lymph # (Auto) 2.1 X10^3/uL (1.3-2.9) 11/28/19 06:20 [place] # (Auto) 0.4 x10^3/uL (0.3-0.8) 11/28/19 06:20 Eos # (Auto) 0.2 x10^3/uL (0.0-0.2) 11/28/19 06:20 Baso # (Auto) 0.0 X10^3/uL (0.0-0.1) 11/28/19 06:20 Absolute Nucleated RBC 0.1 /100WBC 11/28/19 06:20 Sodium 141 mmol/L (136-145) 11/28/19 06:20 Corrected Sodium TNP 11/28/19 06:20 Potassium 3.5 mmol/L (3.5-5.1) 11/28/19 06:20 Chloride 106 mmol/L (98-107) 11/28/19 06:20 Carbon Dioxide 27.5 mmol/L (21-32) 11/28/19 06:20 BUN 9 mg/dL (7-18) 11/28/19 06:20 Creatinine 0.90 mg/dL (0.55-1.02) 11/28/19 06:20 Est GFR (MDRD) Af Amer > 60 (>60) 11/28/19 06:20 Est GFR (MDRD) Non-Af > 60 (>60) 11/28/19 06:20 Glucose 102 mg/dL (65-99) H 11/28/19 06:20 Hemoglobin A1c 5.1 % 11/25/19 06:05 Calcium 8.8 mg/dL (8.5-10.1) 11/28/19 06:20 Corrected Calcium TNP 11/28/19 06:20 Magnesium 2.1 mg/dL (1.7-2.9) 11/26/19 05:09 Total Bilirubin 0.30 mg/dL (0.2-1.0) 11/28/19 06:20 AST 14 Units/L (15-37) L 11/28/19 06:20 ALT 27 Units/L (12-78) 11/28/19 06:20 Alkaline Phosphatase 61 Units/L (46-116) 11/28/19 06:20 Total Protein 7.2 g/dL (6.4-8.2) 11/28/19 06:20 Albumin 3.4 g/dL (3.4-5.0) 11/28/19 06:20 Globulin 3.8 g/dL (2.5-4.5) 11/28/19 06:20 Albumin/Globulin Ratio 0.9 Ratio (1.1-2.1) L 11/28/19 06:20 Triglycerides 254 mg/dL (0-150) H 11/25/19 06:05 Cholesterol 207 mg/dL (0-200) H 11/25/19 06:05 LDL Cholesterol, Calc 117 mg/dL (0-100) H 11/25/19 06:05 HDL Cholesterol 39 mg/dL (40-60) L 11/25/19 06:05 Cholesterol/HDL Ratio 5.3 (0.0-5.0) H 11/25/19 06:05 Amylase 28 Units/L (25-115) 11/25/19 06:05 Amylase 28 Units/L (25-115) 11/25/19 06:05 Lipase 148 Units/L (73-393) 11/25/19 06:05 Lipase 149 Units/L (73-393) 11/25/19 06:05 Specimen Type Clean catch urine 11/25/19 08:56 Urine Color Yellow (YELLOW) 11/25/19 08:56 Urine Appearance Hazy (CLEAR) 11/25/19 08:56 Urine pH 6.5 (5.0 - 8.0) 11/25/19 08:56 Ur Specific [place] 1.005 (1.000-1.030) 11/25/19 08:56 Urine Protein Negative (NEGATIVE) 11/25/19 08:56 Urine Glucose (UA) Negative (NEGATIVE) 11/25/19 08:56 Urine Ketones Negative (NEGATIVE) 11/25/19 08:56 Urine Occult Blood 3+ (NEGATIVE) 11/25/19 08:56 Urine Nitrite Negative (NEGATIVE) 11/25/19 08:56 Urine Bilirubin Negative (NEGATIVE) 11/25/19 08:56 Urine Urobilinogen Normal (NORMAL) 11/25/19 08:56 Ur Leukocyte Esterase Negative (NEGATIVE) 11/25/19 08:56 Urine RBC 3-5 /HPF (0-3) A 11/25/19 08:56 Urine WBC None seen /HPF (0-5) 11/25/19 08:56 Ur Squamous Epith Cells Few /HPF (NEGATIVE) 11/25/19 08:56 Urine Bacteria Negative /HPF (NEGATIVE) 11/25/19 08:56 Ur Culture Indicated? No/not indicated 11/25/19 08:56 Urine Opiates Screen Positive (NEG=<300) A 11/25/19 17:35 Urine Methadone Screen Negative (NEG=<300) 11/25/19 17:35 Ur Barbiturates Screen Negative (NEG=<200) 11/25/19 17:35 Ur Phencyclidine Scrn Negative (NEG=<25) 11/25/19 17:35 Ur Amphetamines Screen Negative (NEG=<1000) 11/25/19 17:35 U Benzodiazepines Scrn Positive (NEG=<200) A 11/25/19 17:35 Urine Cocaine Screen Negative (NEG=<300) 11/25/19 17:35 U Marijuana (THC) Screen Positive (NEG=<50) A 11/25/19 17:35 Ethyl Alcohol mg/dL < 3 mg/dL (0-19.9) 11/25/19 06:05 Tissue Pathology To follow 11/28/19 08:30 Reason For Visit: ACUTE ABD PAIN Discharge Date Discharge Date: 11/28/19 Discharge Diagnosis All Active Problems (Updated 11/28/19 @ 09:33 by Myron Sarkar) Chronic cholecystitis (Acute) Hypokalemia (Acute) DDD (degenerative disc disease) (Acute) THOM (generalized anxiety disorder) (Acute) Hypertension (Acute) Abdominal pain (Acute) Acute pancreatitis (Acute) Plan of Treatment: Continue with present treatment and follow up plan. Pt is to keep follow up appointment as instructed and take medications as ordered. Discharge Medications Discharge Medications: No Known Drug Allergies Allergy (Verified 11/25/19 12:58) CONTINUE taking the following medications amlodipine 5 mg PO DAILY 11/25/19 [History] lisinopril-hydrochlorothiazide 1 tab PO DAILY 11/25/19 [History] tizanidine [Zanaflex] 4 mg PO BID 11/25/19 [History] New Prescriptions alprazolam [Xanax] 0.5 mg PO BID PRN 7 Days #14 tab MDD 1mg 11/28/19 [Rx] oxycodone-acetaminophen [Percocet] 1 tab PO TID PRN 7 Days #21 tab MDD 30mg 11/28/19 [Rx] Discharge Disposition Assessment: Patient stable no acute distress noted at time of discharge. Discharge Disposition: Home
[2019-11-28 12:11] VITALS: BP 135/72
[2019-11-28] MEDS: NORCO 5/325 MG TAB PO PRN (12:13)
[2019-11-28] MEDS ORDERED: AFLURIA II4 or FLUARIX II4 IM ONE ×2 (12:45→12:48)
== END 2019-11-28 13:05 | disposition home or self-care (01) | DRG 419 ==
LOC: ER 05:57 → OBS 11:47
PROVIDERS: ADMIT Family Medicine; ATTEND Family Medicine
DX: R10.84 Generalized abdominal pain; R52 Pain, unspecified; I10 Essential (primary) hypertension; Z23 Encounter for immunization; K85.80 Other acute pancreatitis without necrosis or infection; K81.1 Chronic cholecystitis; F41.1 Generalized anxiety disorder; E87.6 Hypokalemia; R11.2 Nausea with vomiting, unspecified
CPT/HCPCS: 36415; 71010; 71045; 74177; 76705; 78227; 80053; 80061; 80307; 80320; 81001; 82150; 83036; 83690; 83735; 85025; 88304; 90674; 90686; 93005; 96365; 96374; 96375; 99284; A4216; A4222; J0330; J0690; J1100; J1170; J1885; J2175; J2250; J2270; J2405; J2550; J2710; J3010; J3490; J7030; J7120; S5010

== ENCOUNTER 2025-08-18 09:55 | Observation (INO) ==
--- NOTE | 2025-08-18 10:07 | EKG ---
Test Reason : chest pain Blood Pressure : */* mmHG Vent. Rate : 141 BPM Atrial Rate : 141 BPM P-R Int : 152 ms QRS Dur : 102 ms QT Int : 284 ms P-R-T Axes : 97 -44 -75 degrees QTc Int : 434 ms Sinus tachycardia Left axis deviation Pulmonary disease pattern Incomplete right bundle branch block Abnormal ECG No previous ECGs available Confirmed by Berhane Haro MD ([id number]) on 08/18/2025 12:35:08 PM Referred By: Confirmed By: Berhane Haro MD
[2025-08-18 10:32] LABS: MEAN PLATELET VOLUME 9.7 fL (7.4-11.0); RED CELL DISTRIBUTION WIDTH 12.7 % (11.6-16.5)
[2025-08-18 10:39] LABS: INR 1.09 (0.8-1.3)
[2025-08-18 10:49] LABS: COR NA(FOR HYPERGLY) 143 mmol/L (136-145); CREATININE 0.80 mg/dL (0.55-1.02); eGFR NON BLACK RACES > 60 (>60)
--- NOTE | 2025-08-18 10:49 | RAD ---
EXAM: AP chest HISTORY: Chest pain COMPARISON: 08/31/2020 FINDINGS: Stable/normal heart size with clear lungs and pleural spaces. IMPRESSION: No interval change or acute chest abnormality identified. THIS IS AN ELECTRONICALLY VERIFIED FINAL REPORT 08/18/2025 10:46 AM - Electronically signed by Paulo Phan MD
--- NOTE | 2025-08-18 11:37 | DR.CP ---
HPI Time Seen Time Seen by Provider: 08/18/25 09:56 PCP Primary Care Physician: Antonina Complaint Chief Complaint Doctor Comments: Patient states she had some chest pain yesterday which resolved and has had none today, however she noticed her heart rate was very high. At this time she is asymptomatic and has not had shortness of breath or any other symptoms besides having checked her heart rate and it was fast. Chief Complaint:: Patient c/o "pounding" heart rate that started yesterday around 9am. denies CP today but reports CP yesterday. Self Treatment fo Chief Complaint: she reports yesterday she took xanax and a nap and heart rate did not decrease. COVID-19 Coronavirus risk:travel/contact w/high risk person: No Has patient experienced Coronavirus symptoms: No Source History Provided: Patient and EMS Mode of Arrival Mode of Arrival: EMS Timing Onset of Chief Complaint: 08/17/25 PMH PMH Past Medical History: Yes Past Medical History: Anxiety, Depression, Diabetes, Dyslipidemia and Hypertension Past Surgical History: Yes Surgical History: Cholecystectomy, Ortho Surgery, Tonsillectomy and Other Past Surgical History Comment: neck surgery Family History History of Family Medical Conditions: Yes Family Medical History: Diabetes Mellitus, Cancer, DC, Coronary Artery Disease, Heart Failure, Sudden Cardiac and Hypertension Social History Type of Tobacco Use: Vape Alcohol Use: Occasionally Do you use any recreational Drugs:: Yes (THC) Lives With: Alone Lives Where: Home Travel Risk Coronavirus risk:travel/contact w/high risk person: No Has patient experienced Coronavirus symptoms: No Infectious screening Have you traveled outside the country in the last 6 months?: No Isolation: Standard ROS Review of Systems Constitutional: No Symptoms Reported Eyes: No Symptoms Reported ENTM: No Symptoms Reported Respiratoy: No Symptoms Reported Cardiovascular: See HPI; negative Chest Pain, Edema, Palpitations or Syncope Gastrointestinal/Abdominal: No Symptoms Reported Genitourinary: No Symptoms Reported Neurological: No Symptoms Reported Musculoskeletal: No Symptoms Reported Integumentary: No Symptoms Reported Hematologic/Lymphatic: No Symptoms Reported Endocrine: No Symptoms Reported Psychiatric: No Symptoms Reported All Other Systems: Reviewed and Negative PE Vitals Vitals: Vital Signs Temperature 98.3 F Pulse Rate 132 Pulse Rate 133 Pulse Rate 133 Pulse Rate 130 Pulse Rate 134 Pulse Rate 133 Pulse Rate 131 Pulse Rate 133 Pulse Rate 132 Pulse Rate 132 Pulse Rate 133 Pulse Rate 132 Pulse Rate 134 Pulse Rate 138 Pulse Rate 140 Pulse Rate 139 Pulse Rate 140 Pulse Rate 138 Pulse Rate 138 Pulse Rate 136 Pulse Rate 140 Pulse Rate 143 Pulse Rate 142 Pulse Rate 141 Respiratory Rate 27 Respiratory Rate 25 Respiratory Rate 22 Respiratory Rate 23 Respiratory Rate 29 Respiratory Rate 34 Respiratory Rate 38 Respiratory Rate 35 Respiratory Rate 25 Respiratory Rate 15 Respiratory Rate 13 Respiratory Rate 25 Respiratory Rate 27 Respiratory Rate 20 Respiratory Rate 18 Respiratory Rate 36 Respiratory Rate 25 Respiratory Rate 25 Respiratory Rate 24 Respiratory Rate 24 Respiratory Rate 28 Respiratory Rate 25 Respiratory Rate 16 Respiratory Rate 22 Blood Pressure 100/74 Blood Pressure 110/72 Blood Pressure 115/78 Blood Pressure 118/79 Blood Pressure 118/79 Blood Pressure 123/97 Blood Pressure 127/81 Blood Pressure 119/90 Blood Pressure 127/85 Blood Pressure 127/85 Blood Pressure 130/83 Blood Pressure 128/95 Blood Pressure 124/92 Blood Pressure 124/92 Blood Pressure 140/82 Blood Pressure 123/84 Blood Pressure 125/90 Blood Pressure 109/86 O2 Sat by Pulse Oximetry 96 O2 Sat by Pulse Oximetry 95 O2 Sat by Pulse Oximetry 96 O2 Sat by Pulse Oximetry 97 O2 Sat by Pulse Oximetry 98 O2 Sat by Pulse Oximetry 98 O2 Sat by Pulse Oximetry 98 O2 Sat by Pulse Oximetry 99 O2 Sat by Pulse Oximetry 99 O2 Sat by Pulse Oximetry 99 O2 Sat by Pulse Oximetry 99 O2 Sat by Pulse Oximetry 99 O2 Sat by Pulse Oximetry 99 O2 Sat by Pulse Oximetry 99 O2 Sat by Pulse Oximetry 99 O2 Sat by Pulse Oximetry 99 General Limitations: No Limitations General Appearance: Alert and In No Apparent Distress Head Head Exam: Normal Inspection Eyes Eye exam: Normal Appearance Chest Chest Inspection: Normal Inspection Respiratory Respiratory Exam: Normal Lung Sounds Bilat Cardiovascular Cardiovascular Exam: Normal Rhythm and Tachycardia Pulse: Normal Edema: Normal Abdominal Exam Abdominal Exam: Normal Inspection, Normal Bowel Sounds and Soft Extremities Extremities Exam: Normal Inspection Back Back Exam: Normal Inspection Neurologic Neurological Exam: Alert and Oriented X3 Psychiatric Psychiatric Exam: Normal Affect and Normal Mood Skin Skin Exam: Warm, Dry, Intact and Normal Color COURSE Treatment Treatment: Overnight stay for chest pain rule out and to monitor heart rate as well as start metoprolol to help with rate control. Patient did admit to having used kratom for the first time yesterday. Suspect this may be result of that substance. Consultation Called: 14:02 Consultation Comments: Discussed case with Dr. Mills and she is agreeable to admission. ROR Labs Reviewed Laboratory Results Reviewed?: Yes 08/18/25 10:08 08/18/25 10:08 Laboratory: WBC 8.9 X10^3/uL (3.6-10.0) 08/18/25 10:08 RBC 5.21 X10^6/uL (3.5-5.4) 08/18/25 10:08 Hgb 15.4 g/dL (12.0-16.0) 08/18/25 10:08 Hct 44.0 % (36.0-47.0) 08/18/25 10:08 MCV 84.5 fL (80.0-100.0) 08/18/25 10:08 MCH 29.6 pg (27.0-34.0) 08/18/25 10:08 MCHC 35.1 g/dL (33.0-35.0) H 08/18/25 10:08 RDW 12.7 % (11.6-16.5) 08/18/25 10:08 Plt Count 258 X10^3/uL (150.0-450.0) 08/18/25 10:08 MPV 9.7 fL (7.4-11.0) 08/18/25 10:08 Neut % (Auto) 52.8 % (42.0-75.0) 08/18/25 10:08 Lymph % (Auto) 36.7 % (21.0-51.0) 08/18/25 10:08 [place] % (Auto) 6.6 % (0.0-13.0) 08/18/25 10:08 Eos % (Auto) 2.9 % (0.9-2.9) 08/18/25 10:08 Baso % (Auto) 1.0 % (0.2-1.0) 08/18/25 10:08 Neut # (Auto) 4.7 x10^3/uL (2.2-4.8) 08/18/25 10:08 Lymph # (Auto) 3.3 X10^3/uL (1.3-2.9) H 08/18/25 10:08 [place] # (Auto) 0.6 x10^3/uL (0.3-0.8) 08/18/25 10:08 Eos # (Auto) 0.3 x10^3/uL (0.0-0.2) H 08/18/25 10:08 Baso # (Auto) 0.1 X10^3/uL (0.0-0.1) 08/18/25 10:08 Absolute Nucleated RBC 0.0 /100WBC 08/18/25 10:08 PT 14.2 SECONDS (11.8-14.3) 08/18/25 10:08 INR Target Range - 08/18/25 10:08 INR 1.09 (0.8-1.3) 08/18/25 10:08 APTT 28.3 SECONDS (22.9-36.5) 08/18/25 10:08 PTT Comment - 08/18/25 10:08 D-Dimer < 0.27 ug/ml (0.0-0.57) 08/18/25 10:08 Sodium 140 mmol/L (136-145) 08/18/25 10:08 Corrected Sodium 143 mmol/L (136-145) 08/18/25 10:08 Potassium 3.5 mmol/L (3.5-5.1) 08/18/25 10:08 Chloride 106 mmol/L (98-107) 08/18/25 10:08 Carbon Dioxide 26.0 mmol/L (21-32) 08/18/25 10:08 BUN 19 mg/dL (7-18) H 08/18/25 10:08 Creatinine 0.80 mg/dL (0.55-1.02) 08/18/25 10:08 Est GFR (MDRD) Af Amer > 60 (>60) 08/18/25 10:08 Est GFR (MDRD) Non-Af > 60 (>60) 08/18/25 10:08 Glucose 213 mg/dL (65-99) H 08/18/25 10:08 Calcium 9.4 mg/dL (8.5-10.1) 08/18/25 10:08 Corrected Calcium TNP 08/18/25 10:08 Magnesium 1.9 mg/dL (2.0-2.9) L 08/18/25 10:08 Total Bilirubin 0.60 mg/dL (0.2-1.0) 08/18/25 10:08 AST 15 Units/L (15-37) 08/18/25 10:08 ALT 28 Units/L (12-78) 08/18/25 10:08 Alkaline Phosphatase 69 Units/L (46-116) 08/18/25 10:08 Creatine Kinase 33 Units/L (26-192) 08/18/25 10:08 Troponin I High Sens 7.7 ng/L (4.0-60.0) 08/18/25 11:59 Total Protein 7.5 g/dL (6.4-8.2) 08/18/25 10:08 Albumin 3.8 g/dL (3.4-5.0) 08/18/25 10:08 Globulin 3.7 g/dL (2.5-4.5) 08/18/25 10:08 Albumin/Globulin Ratio 1.0 Ratio (1.1-2.1) L 08/18/25 10:08 XRAY X-ray Results: Name: RACHNA GLASS V [facility]#: [id number] : 1965 Sex: F Location: ER Order Number(s): [id number] Procedure(s):CHEST, 1 VIEW X-RAY Ordering Physician: Orlin Fleming Primary Care: Myron Sarkar MD Service Date: 08/18/25 Service Time: 955 EXAM: AP chest HISTORY: Chest pain COMPARISON: 08/31/2020 FINDINGS: Stable/normal heart size with clear lungs and pleural spaces. IMPRESSION: No interval change or acute chest abnormality identified. THIS IS AN ELECTRONICALLY VERIFIED FINAL REPORT 08/18/2025 10:46 AM - Electronically signed by Paulo Phan MD EKG Rate: 134 [place]: Normal Rhythm: ST Hypertrophy: None ST: Normal Opioid Opioid Risk Tool Age ([place] box if 16-45): No History of Preadolescent Sexual Abuse: No Total: 0 Total Score Risk Category: Low Risk Copyright: Tom ETIENNE predicting aberrant behaviors Discharge Plan Diagnosis Discharge Problem: Sinus tachycardia, Atrial flutter, Chest pain Discharge Plan Patient Disposition: 09 ADMITTED INPATIENT Condition: Stable Prescriptions: No Action ergocalciferol (vitamin D2) 1,250 mcg (50,000 unit) capsule 1,250 mcg PO QWEEK Qty: 26 0RF sertraline 100 mg tablet 100 mg PO QDAY Qty: 90 1RF alprazolam [Xanax] 0.5 mg tablet 0.5 mg PO BID MDD 2 PRN (Reason: pain) 30 Days Qty: 60 0RF gabapentin 100 mg capsule 200 mg PO QDAY PRN (Reason: for neuropathic pain) Qty: 200 2RF oxycodone-acetaminophen [Percocet] 10-325 mg tablet 1 tab PO TID MDD 3 PRN (Reason: pain) 30 Days Qty: 90 0RF tizanidine 4 mg tablet 4 mg PO BID PRN (Reason: for muscle spasm) Qty: 60 1RF metformin 750 mg tablet extended release 24 hr 750 mg PO BID Qty: 200 2RF lisinopril 10 mg tablet 10 mg PO QDAY Qty: 90 0RF glipizide 10 mg tablet extended release 24hr 10 mg PO QDAY Qty: 30 3RF fenofibrate nanocrystallized 145 mg tablet 145 mg PO QDAY Qty: 90 3RF atorvastatin 40 mg tablet 40 mg PO QPM Qty: 100 2RF amlodipine 10 mg tablet 10 mg PO QDAY Qty: 100 2RF Health Concerns: Post Hospitalization: new medications and changes needed to prevent readmission or further decline. Pt educated and given instructions on all concerns. Plan of Treatment: Continue with present treatment and follow up plan. Pt is to keep follow up appointment as instructed and take medications as ordered. Orders to Discharge Patient Discharge Orders: Transfer (Routine); Ordered 08/18/25 Ordered By: Orlin Fleming Follow ups/Referrals Follow ups/Referrals: Myron Sarkar MD [Primary Care Provider, MEDICAL] - 3 days Instructions Stand Alone Forms: Find Help Web Site, Post Hospital Follow Up Care Print Language: MALAGASY
[2025-08-18] MEDS: LOPRESSOR INJ 5 MG AMP IVP ONE ×2 (11:59→12:22)
[2025-08-18] MEDS: MAG-OX TAB PO ONE (12:23)
--- NOTE | 2025-08-18 13:50 | EKG ---
Test Reason : atrial flutter new Blood Pressure : */* mmHG Vent. Rate : 134 BPM Atrial Rate : 134 BPM P-R Int : 192 ms QRS Dur : 86 ms QT Int : 282 ms P-R-T Axes : 77 21 -89 degrees QTc Int : 421 ms Atrial flutter - Abnormal ECG When compared with ECG of 18-AUG-2025 09:59, Incomplete right bundle branch block is no longer present review of previous ekg I read sinus tach could be aflutter ( tough) Confirmed by Berhane Haro MD ([id number]) on 08/18/2025 2:39:48 PM Referred By: Confirmed By: Berhane Haro MD
--- NOTE | 2025-08-18 14:23 | EKG ---
Test Reason : repeat Blood Pressure : */* mmHG Vent. Rate : 104 BPM Atrial Rate : 271 BPM P-R Int : * ms QRS Dur : 88 ms QT Int : 342 ms P-R-T Axes : * 11 14 degrees QTc Int : 449 ms Atrial flutter with variable AV block Abnormal ECG When compared with ECG of 18-AUG-2025 13:49, (Unconfirmed) Atrial flutter has replaced Sinus rhythm Nonspecific T wave abnormality no longer evident in Anterolateral leads Confirmed by Berhane Haro MD ([id number]) on 08/18/2025 2:35:58 PM Referred By: Confirmed By: Berhane Haro MD
[2025-08-18] MEDS ORDERED: NORCO 5/325 MG TAB PO PRN (15:14)
[2025-08-18] MEDS ORDERED: MORPHINE SULFATE INJ 2 MG INJ IVP PRN (15:14)
[2025-08-18] MEDS ORDERED: LOPRESSOR TAB 50 MG PO SCH (15:14)
[2025-08-18] MEDS ORDERED: CONSULT PHARMACY - POTASSIUM & MAGNESIUM XX SCH (15:14)
[2025-08-18] MEDS ORDERED: TYLENOL 325 MG TAB PO PRN (15:14)
[2025-08-18] MEDS ORDERED: CARDIZEM INJ 125 MG VIAL 125 MG in NS 100 ML IV 100 ML IV PRN (15:36)
[2025-08-18 16:16] VITALS: BMI 27.3
[2025-08-18 16:19] LABS: TSH (3RD GENERATION) 0.213 uIU/mL (0.358-3.74)
[2025-08-18] MEDS: CARDIZEM INJ 125 MG VIAL 125 MG in NS 100 ML IV 100 ML IV PRN (16:37)
[2025-08-18] MEDS: CARDIZEM INJ 50 MG VIAL IVP ONE (16:37)
[2025-08-18] MEDS: ASPIRIN PO SCH (16:38)
[2025-08-18] MEDS: ELIQUIS PO SCH (16:38)
[2025-08-18] MEDS: LOPRESSOR TAB 25 MG PO SCH (16:38)
[2025-08-18] MEDS: MAG-OX TAB ONE (16:49)
[2025-08-18] MEDS: NS 1,000 ML IV 1,000 ML IV SCH (17:03)
[2025-08-18] MEDS: NovoLIN R (or HumuLIN R) SUBCUT PRN (17:34)
[2025-08-18] MEDS ORDERED: NEURONTIN CAP 100 MG PO PRN (17:49)
[2025-08-18] MEDS ORDERED: PERCOCET TAB 5/325 MG PO PRN (18:10)
--- NOTE | 2025-08-18 19:43 | EKG ---
Test Reason : A FLUTTER,C/P Blood Pressure : */* mmHG Vent. Rate : 68 BPM Atrial Rate : 272 BPM P-R Int : * ms QRS Dur : 84 ms QT Int : 422 ms P-R-T Axes : 244 15 -56 degrees QTc Int : 448 ms Atrial flutter with variable AV block T wave abnormality, consider lateral ischemia Abnormal ECG When compared with ECG of 18-AUG-2025 13:58, Vent. rate has decreased BY 36 BPM T wave inversion more evident in Inferior leads T wave inversion now evident in Lateral leads Confirmed by Berhane Haro MD ([id number]) on 08/18/2025 8:16:00 PM Referred By: Confirmed By: Berhane Haro MD
--- NOTE | 2025-08-18 20:14 | DR.CONSULT ---
CONSULT Consultation for Day of: Date: 08/18/25 Chief Complaint Chief Complaint: fast hr Allergies Allergies Allergy/AdvReac Type Severity Reaction Status Date / Time No Known Drug Allergies Allergy Verified 08/18/25 10:09 History of Present Illness History of Present Illness: 60 yo female- htn/dm/hlp/vapes-has had fast hr with vague cp since yesterday 930 am. first ekg i raed as sinus tach?- next two : aflutter- given a dose or two of iv metoprolol but hr still 130. been using kratom for energy and ? if this caused her fast hr Past Medical History Past Medical History: Anxiety, Depression, Diabetes, Dyslipidemia and Hypertension Past Surgical History Surgical History: Cholecystectomy, Ortho Surgery, Tonsillectomy and Other Family History Family Medical History: Diabetes Mellitus, Cancer, [place], Coronary Artery Disease, Heart Failure, Sudden Cardiac and Hypertension Social History Does patient currently use any type of tobacco product: Yes (Vapes) Have you used tobacco products in the last 12 months: Yes Type of Tobacco Use: Vape Alcohol Use: Occasionally Drug Use: Marijuana Medications Home Medications: No Known Drug Allergies Allergy (Verified 08/18/25 10:09) Physical Exam Vital Signs: Vital Signs Temperature 98.4 F Pulse Rate [Bilateral Radial] 100 Pulse Rate [Bilateral Radial] 101 Pulse Rate 69 Pulse Rate 69 Pulse Rate 69 Pulse Rate 69 Pulse Rate 111 Pulse Rate 132 Pulse Rate 130 Pulse Rate 132 Pulse Rate 133 Pulse Rate 131 Pulse Rate 134 Pulse Rate 127 Pulse Rate 132 Pulse Rate 133 Pulse Rate 133 Pulse Rate 130 Pulse Rate 134 Pulse Rate 133 Pulse Rate 131 Pulse Rate 133 Pulse Rate 132 Pulse Rate 132 Pulse Rate 133 Pulse Rate 132 Respiratory Rate 26 Respiratory Rate 29 Respiratory Rate 31 Respiratory Rate 22 Respiratory Rate 16 Respiratory Rate 34 Respiratory Rate 23 Respiratory Rate 23 Respiratory Rate 17 Respiratory Rate 27 Respiratory Rate 33 Respiratory Rate 29 Respiratory Rate 30 Respiratory Rate 27 Respiratory Rate 25 Respiratory Rate 22 Respiratory Rate 23 Respiratory Rate 29 Respiratory Rate 34 Respiratory Rate 38 Respiratory Rate 35 Respiratory Rate 25 Respiratory Rate 15 Respiratory Rate 13 Respiratory Rate 25 Blood Pressure [Right Arm] 133/87 Blood Pressure 136/79 Blood Pressure 131/74 Blood Pressure 133/87 Blood Pressure 133/87 Blood Pressure 109/80 Blood Pressure 100/74 Blood Pressure 110/72 Blood Pressure 115/78 Blood Pressure 118/79 Blood Pressure 118/79 Blood Pressure 123/97 Blood Pressure 127/81 Blood Pressure 119/90 Blood Pressure 127/85 Blood Pressure 127/85 Blood Pressure 130/83 O2 Sat by Pulse Oximetry 100 O2 Sat by Pulse Oximetry 98 O2 Sat by Pulse Oximetry 99 O2 Sat by Pulse Oximetry 98 O2 Sat by Pulse Oximetry 97 O2 Sat by Pulse Oximetry 97 O2 Sat by Pulse Oximetry 97 O2 Sat by Pulse Oximetry 97 O2 Sat by Pulse Oximetry 98 O2 Sat by Pulse Oximetry 96 O2 Sat by Pulse Oximetry 98 O2 Sat by Pulse Oximetry 98 O2 Sat by Pulse Oximetry 96 O2 Sat by Pulse Oximetry 95 O2 Sat by Pulse Oximetry 96 O2 Sat by Pulse Oximetry 97 alert ox3 no bruits fast hr clear lungs no edema last 2 ekgs: clearly aflutter labs ok, 2 trops ok- thyroid pending Plan (1) Chest pain: Status: Acute (2) Mixed hyperlipidemia: Status: None (3) Type 2 diabetes mellitus: Status: None Qualifiers: Diabetes mellitus fpc insulin use: without manager intermediate use Diabetes mellitus complication status: with other specified complication Qualified Code(s): E11.69 - Type 2 diabetes mellitus with other specified complication (4) Essential hypertension: Status: Acute (5) Atrial flutter: Status: Acute Plan: chads vasc 3 so add doac. rate control w iv cardizem and po BB- hopefully she will convert w time/or jenelle /cv in day/two
[2025-08-18] MEDS: SNACK - Diabetic Appropriate PO SCH (20:44)
[2025-08-18] MEDS: MAG-OX TAB PO SCH (20:45)
[2025-08-18] MEDS: COLACE CAP 100 MG PO SCH (20:46)
[2025-08-18] MEDS: LIPITOR TAB 40 MG PO SCH (20:46)
[2025-08-18] MEDS: ALPRAZOLAM ODT PO PRN (20:47)
[2025-08-18] MEDS: K-DUR TAB 20 MEQ PO SCH (20:47)
[2025-08-18] MEDS: ZANAFLEX PO PRN (20:47)
--- NOTE | 2025-08-18 20:53 | DR.H&P ---
H&P History & Physical for Day of: H&P Date: 08/18/25 Chief Complaint Chief Complaint: CHEST PAIN History of Present Illness History of Present Illness: 60 yo female with h/o HTN, NIDDM, Hyperlipidemia seen in the ER for chest pain and heart fluttering. Patient states that she began to notice on Monday that her heart was pounding; checked her heart rate and it was 135. States that she also had a heaviness in the left side of her chest and began to feel like she was going to pass out. States that she sat down, tried deep breathing to see if it would help but her heart continued to pound and heart rate stayed up. Admits to feeling a little short of breath with all of this but denies nausea, vomiting, or diaphoresis associated with these episodes. Patient states that she had been cooking breakfast before this started but also relates that she took 2 Kradom from a convenience store which is something she had never done before. Denies personal history of heart disease or atrial fib but states that her mother at 42 of a coronary occlusion and her father at 68 from a brain aneurysm. States that she currently vapes and drinks a few beers on the weekends during the games; denies recreational drug use. Patient evaluated in ER noted to have atrial fib with a rapid ventricular rate; given parenteral meds with only transient resolution. Cardiac troponins done in the ER were negative X 2 but given patient's new onset a fib with rapid ventricular rate, risk factors including FH she is admitted for Cardiology evaluation, heart rate control and rule out SD. Past Medical History Past Medical History: Anxiety, Depression, Diabetes, Dyslipidemia and Hypertension Past Surgical History Surgical History: Cholecystectomy, Ortho Surgery, Tonsillectomy and Other Family History Family Medical History: Diabetes Mellitus, Cancer, [place], Coronary Artery Disease, Heart Failure, Sudden Cardiac and Hypertension Social History Does patient currently use any type of tobacco product: Yes (Vapes) Have you used tobacco products in the last 12 months: Yes Type of Tobacco Use: Vape Alcohol Use: Occasionally Prescription drug monitoring program results: PDMP reviewed with concerns identified Allergies Allergies Allergy/AdvReac Type Severity Reaction Status Date / Time No Known Drug Allergies Allergy Verified 08/18/25 10:09 Labs 08/18/25 10:08 08/18/25 10:08 Labs: Laboratory WBC 8.9 X10^3/uL (3.6-10.0) 10/27/25 10:08 RBC 5.21 X10^6/uL (3.5-5.4) 08/18/25 10:08 Hgb 15.4 g/dL (12.0-16.0) 08/18/25 10:08 Hct 44.0 % (36.0-47.0) 08/18/25 10:08 MCV 84.5 fL (80.0-100.0) 08/18/25 10:08 MCH 29.6 pg (27.0-34.0) 08/18/25 10:08 MCHC 35.1 g/dL (33.0-35.0) H 08/18/25 10:08 RDW 12.7 % (11.6-16.5) 08/18/25 10:08 Plt Count 258 X10^3/uL (150.0-450.0) 08/18/25 10:08 MPV 9.7 fL (7.4-11.0) 08/18/25 10:08 Neut % (Auto) 52.8 % (42.0-75.0) 08/18/25 10:08 Lymph % (Auto) 36.7 % (21.0-51.0) 08/18/25 10:08 [place] % (Auto) 6.6 % (0.0-13.0) 08/18/25 10:08 Eos % (Auto) 2.9 % (0.9-2.9) 08/18/25 10:08 Baso % (Auto) 1.0 % (0.2-1.0) 08/18/25 10:08 Neut # (Auto) 4.7 x10^3/uL (2.2-4.8) 08/18/25 10:08 Lymph # (Auto) 3.3 X10^3/uL (1.3-2.9) H 08/18/25 10:08 [place] # (Auto) 0.6 x10^3/uL (0.3-0.8) 08/18/25 10:08 Eos # (Auto) 0.3 x10^3/uL (0.0-0.2) H 08/18/25 10:08 Baso # (Auto) 0.1 X10^3/uL (0.0-0.1) 08/18/25 10:08 Absolute Nucleated RBC 0.0 /100WBC 08/18/25 10:08 PT 14.2 SECONDS (11.8-14.3) 08/18/25 10:08 INR Target Range - 08/18/25 10:08 INR 1.09 (0.8-1.3) 08/18/25 10:08 APTT 28.3 SECONDS (22.9-36.5) 08/18/25 10:08 PTT Comment - 08/18/25 10:08 D-Dimer < 0.27 ug/ml (0.0-0.57) 08/18/25 10:08 Sodium 140 mmol/L (136-145) 08/18/25 10:08 Corrected Sodium 143 mmol/L (136-145) 08/18/25 10:08 Potassium 3.5 mmol/L (3.5-5.1) 08/18/25 10:08 Chloride 106 mmol/L (98-107) 08/18/25 10:08 Carbon Dioxide 26.0 mmol/L (21-32) 08/18/25 10:08 BUN 19 mg/dL (7-18) H 08/18/25 10:08 Creatinine 0.80 mg/dL (0.55-1.02) 08/18/25 10:08 Est GFR (MDRD) Af Amer > 60 (>60) 08/18/25 10:08 Est GFR (MDRD) Non-Af > 60 (>60) 08/18/25 10:08 Glucose 213 mg/dL (65-99) H 08/18/25 10:08 POC Glucose (mg/dL) 281 mg/dL (65-99) H 08/18/25 15:52 Calcium 9.4 mg/dL (8.5-10.1) 08/18/25 10:08 Corrected Calcium TNP 08/18/25 10:08 Magnesium 1.9 mg/dL (2.0-2.9) L 08/18/25 10:08 Total Bilirubin 0.60 mg/dL (0.2-1.0) 08/18/25 10:08 AST 15 Units/L (15-37) 08/18/25 10:08 ALT 28 Units/L (12-78) 08/18/25 10:08 Alkaline Phosphatase 69 Units/L (46-116) 08/18/25 10:08 Creatine Kinase 33 Units/L (26-192) 08/18/25 10:08 Troponin I High Sens 7.7 ng/L (4.0-60.0) 08/18/25 11:59 Total Protein 7.5 g/dL (6.4-8.2) 08/18/25 10:08 Albumin 3.8 g/dL (3.4-5.0) 08/18/25 10:08 Globulin 3.7 g/dL (2.5-4.5) 08/18/25 10:08 Albumin/Globulin Ratio 1.0 Ratio (1.1-2.1) L 08/18/25 10:08 Review of Systems Constitutional: No Symptoms Reported Eyes: No Symptoms Reported Respiratory: Shortness of Breath Cardiovascular: Chest Pain and Palpitations Gastrointestinal: No Symptoms Reported Neurological: Weakness; denies Incoordination or Change in Speech Physical Exam Vital Signs: Vital Signs Temperature 98.4 F Temperature 98.3 F Pulse Rate [Bilateral Radial] 100 Pulse Rate [Bilateral Radial] 101 Pulse Rate 132 Pulse Rate 130 Pulse Rate 132 Pulse Rate 133 Pulse Rate 131 Pulse Rate 134 Pulse Rate 127 Pulse Rate 132 Pulse Rate 133 Pulse Rate 133 Pulse Rate 130 Pulse Rate 134 Pulse Rate 133 Pulse Rate 131 Pulse Rate 133 Pulse Rate 132 Pulse Rate 132 Pulse Rate 133 Pulse Rate 132 Pulse Rate 134 Pulse Rate 138 Pulse Rate 140 Pulse Rate 139 Pulse Rate 140 Pulse Rate 138 Pulse Rate 138 Pulse Rate 136 Pulse Rate 140 Pulse Rate 143 Pulse Rate 142 Pulse Rate 141 Respiratory Rate 16 Respiratory Rate 23 Respiratory Rate 23 Respiratory Rate 17 Respiratory Rate 27 Respiratory Rate 33 Respiratory Rate 29 Respiratory Rate 30 Respiratory Rate 27 Respiratory Rate 25 Respiratory Rate 22 Respiratory Rate 23 Respiratory Rate 29 Respiratory Rate 34 Respiratory Rate 38 Respiratory Rate 35 Respiratory Rate 25 Respiratory Rate 15 Respiratory Rate 13 Respiratory Rate 25 Respiratory Rate 27 Respiratory Rate 20 Respiratory Rate 18 Respiratory Rate 36 Respiratory Rate 25 Respiratory Rate 25 Respiratory Rate 24 Respiratory Rate 24 Respiratory Rate 28 Respiratory Rate 25 Respiratory Rate 16 Respiratory Rate 22 Blood Pressure [Right Arm] 133/87 Blood Pressure 133/87 Blood Pressure 109/80 Blood Pressure 100/74 Blood Pressure 110/72 Blood Pressure 115/78 Blood Pressure 118/79 Blood Pressure 118/79 Blood Pressure 123/97 Blood Pressure 127/81 Blood Pressure 119/90 Blood Pressure 127/85 Blood Pressure 127/85 Blood Pressure 130/83 Blood Pressure 128/95 Blood Pressure 124/92 Blood Pressure 124/92 Blood Pressure 140/82 Blood Pressure 123/84 Blood Pressure 125/90 Blood Pressure 109/86 O2 Sat by Pulse Oximetry 97 O2 Sat by Pulse Oximetry 97 O2 Sat by Pulse Oximetry 97 O2 Sat by Pulse Oximetry 97 O2 Sat by Pulse Oximetry 98 O2 Sat by Pulse Oximetry 96 O2 Sat by Pulse Oximetry 98 O2 Sat by Pulse Oximetry 98 O2 Sat by Pulse Oximetry 96 O2 Sat by Pulse Oximetry 95 O2 Sat by Pulse Oximetry 96 O2 Sat by Pulse Oximetry 97 O2 Sat by Pulse Oximetry 98 O2 Sat by Pulse Oximetry 98 O2 Sat by Pulse Oximetry 98 O2 Sat by Pulse Oximetry 99 O2 Sat by Pulse Oximetry 99 O2 Sat by Pulse Oximetry 99 O2 Sat by Pulse Oximetry 99 O2 Sat by Pulse Oximetry 99 O2 Sat by Pulse Oximetry 99 O2 Sat by Pulse Oximetry 99 O2 Sat by Pulse Oximetry 99 O2 Sat by Pulse Oximetry 99 Oriented: Normal, Time, Person and Place Eyes: Normal Ear: Normal (Hearing grossly normal) Respiratory: Clear Throughout Cardiovascular: Tachycardia and Irregular Auscultation: Bowel Sounds: Normal Palpation: Normal Tenderness: Normal Skin: Normal Psychiatric: Normal Mood Description: Calm Speech Pattern: Clear Assessment/Plan (1) New onset atrial fibrillation: Status: Acute Plan: Patient with new onset a fib with rapid ventricular rate. Admitted to floor on telemetry; seen by Dr. Al -recommends moving to ICU to start Cardizem drip- agree with Cardiology recommendation. (2) Chest pain: Qualifiers: Chest pain type: other chest pain Qualified Code(s): R07.89 - Other chest pain Status: Acute Plan: Patient with atypical chest pain associated with new onset atrial fib. Given her risk factors including HTN, DM and +FH, patient admitted for serial troponins and Cardiology consult (3) Type 2 diabetes mellitus: Qualifiers: Diabetes mellitus complication status: without complication Diabetes mellitus shelter insulin use: without salvage determiner use Qualified Code(s): E11.9 - Type 2 diabetes mellitus without complications Status: None Plan: Patient reports most recent A1c of 7.6%- will start ADA diet, continue Glipizide and request AC and QHS blood glucose monitoring with sliding scale coverage (4) Essential hypertension: Status: Acute Plan: BP elevated on arrival; currently normotensive. Continue Lisinopril and Metoprolol; patient receiving Cardizem drip per Dr. Al. Consider increasing dosage of Metoprolol for HR and BP control once Cardizem drip has been discontinued Review H&P Reviewed: Yes Patient was examined?: Yes
[2025-08-18] MEDS ORDERED: PATIENT'S HOME MEDICATION PO SCH (21:00)
--- NOTE | 2025-08-19 02:54 | EKG ---
Test Reason : A FLUTTER,C/P Blood Pressure : */* mmHG Vent. Rate : 55 BPM Atrial Rate : 271 BPM P-R Int : * ms QRS Dur : 82 ms QT Int : 442 ms P-R-T Axes : 89 -11 -79 degrees QTc Int : 422 ms Atrial flutter with variable AV block Pulmonary disease pattern Abnormal ECG When compared with ECG of 18-AUG-2025 19:32, ST now depressed in Inferior leads ST now depressed in Anterolateral leads Confirmed by Berhane Haro MD ([id number]) on 08/19/2025 6:26:02 AM Referred By: Confirmed By: Berhane Haro MD
[2025-08-19 03:50] LABS: MEAN PLATELET VOLUME 10.1 fL (7.4-11.0); RED CELL DISTRIBUTION WIDTH 13.0 % (11.6-16.5)
[2025-08-19 04:01] LABS: CHOL/HDL RATIO 4.8 (0.0-5.0); COR CA(FOR HYPOALB) 9.2 mg/dL (8.5-10.1); COR NA(FOR HYPERGLY) 143 mmol/L (136-145); CREATININE 0.73 mg/dL (0.55-1.02); eGFR NON BLACK RACES > 60 (>60)
[2025-08-19 04:23] VITALS: TEMP 98.1
[2025-08-19] MEDS ORDERED: CONSULT PHARMACY - POTASSIUM & MAGNESIUM XX SCH (06:00)
[2025-08-19] MEDS ORDERED: GLUCOPHAGE ONE (06:04)
[2025-08-19] MEDS: GLUCOTROL XL 24-HR PO SCH (06:08)
[2025-08-19] MEDS: GLUCOPHAGE PO SCH (06:09)
--- NOTE | 2025-08-19 07:58 | EKG ---
Test Reason : A FLUTTER,C/P Blood Pressure : */* mmHG Vent. Rate : 70 BPM Atrial Rate : 280 BPM P-R Int : * ms QRS Dur : 88 ms QT Int : 440 ms P-R-T Axes : 268 -1 -47 degrees QTc Int : 475 ms Atrial flutter with 4:[address] and T wave abnormality Prolonged QT Abnormal ECG When compared with ECG of 19-AUG-2025 02:51, Nonspecific T wave abnormality no longer evident in Lateral leads QT has lengthened Confirmed by Berhane Haro MD ([id number]) on 08/20/2025 6:42:08 AM Referred By: Confirmed By: Berhane Haro MD
--- NOTE | 2025-08-19 08:10 | NOTE.SOAP ---
Soap Note Note for Day of Date of Exam: 08/19/25 Subjective Data Subjective Data: hr well controlled. still in aflutter- on doac- will try JENELLE/cv later tooday if possible Objective Data Objective Data: clear lungs irreg/rate 60s tsh low but t4 ok Assessment Assessment: aflutter/ htn/dm/hlp Plan Plan: jenelle/cv if possible
--- NOTE | 2025-08-19 09:44 | DR.PROGNOT ---
HOSPITAL PROGRESS NOTE Progress Note for Day of: Progress Note Date: 08/19/25 Chief Complaint Chief Complaint: CHEST PAIN/ RIGHT WRIST PAIN History of Present Illness History of Present Illness: 60 yo female with h/o HTN, NIDDM, Hyperlipidemia and chronic pain admitted with chest pain and new onset atrial fib with RVR. Patient complains this morning of right wrist pain; states that her arm (wrist/forearm) began to swell and hurt-thinks that it's related to the IV. Denies h/o injury/trauma or previous gout; complains of 10/10 pain in her wrist and requesting something for pain immediately. Denies chest pain, palpitations, or shortness of breath. States that she saw the heart doctor who recommended cardioversion; patient agrees to procedure. Voices no additional complaints Past Medical Family Social History Past Med/Fam/Surg Hx: No changes since H&P Allergies: Allergies No Known Drug Allergies Allergy (Verified 08/18/25 10:09) Review Of Systems Changes in ROS: Right wrist pain/swelling Vital Signs Vital Signs: Vital Signs Temperature 98.1 F Pulse Rate 66 Pulse Rate 68 Pulse Rate 68 Pulse Rate 66 Pulse Rate 66 Respiratory Rate 22 Respiratory Rate 25 Respiratory Rate 19 Respiratory Rate 26 Respiratory Rate 24 Blood Pressure 125/85 Blood Pressure 119/68 Blood Pressure 119/74 Blood Pressure 116/64 Blood Pressure 104/57 O2 Sat by Pulse Oximetry 96 O2 Sat by Pulse Oximetry 97 O2 Sat by Pulse Oximetry 97 O2 Sat by Pulse Oximetry 95 O2 Sat by Pulse Oximetry 95 Physical Exam Oriented: Normal, Time, Person and Place Eyes: Normal Ear: Normal (Hearing grossly normal) Cardiovascular: Irregular (Rate 80's) Skin: Normal Musculoskeletal: Wrist (1+ swelling right wrist/forearm. IV site noted- no erythema. Forearm warm- no erythema or induration noted Patient reports 3+ tenderness to palpation) Psychiatric: Anxiety Affect: Anxious Speech Pattern: Clear and Appropriate Laboratory and Diagnostics 08/19/25 03:30 08/19/25 03:30 Labs: Laboratory WBC 8.6 X10^3/uL (3.6-10.0) 08/19/25 03:30 RBC 4.70 X10^6/uL (3.5-5.4) 08/19/25 03:30 Hgb 14.0 g/dL (12.0-16.0) 08/19/25 03:30 Hct 39.5 % (36.0-47.0) 08/19/25 03:30 MCV 84.1 fL (80.0-100.0) 08/19/25 03:30 MCH 29.9 pg (27.0-34.0) 08/19/25 03:30 MCHC 35.6 g/dL (33.0-35.0) H 08/19/25 03:30 RDW 13.0 % (11.6-16.5) 08/19/25 03:30 Plt Count 224 X10^3/uL (150.0-450.0) 08/19/25 03:30 MPV 10.1 fL (7.4-11.0) 08/19/25 03:30 Neut % (Auto) 45.1 % (42.0-75.0) 08/19/25 03:30 Lymph % (Auto) 42.9 % (21.0-51.0) 08/19/25 03:30 [place] % (Auto) 5.2 % (0.0-13.0) 08/19/25 03:30 Eos % (Auto) 4.3 % (0.9-2.9) H 08/19/25 03:30 Baso % (Auto) 2.5 % (0.2-1.0) H 08/19/25 03:30 Neut # (Auto) 3.9 x10^3/uL (2.2-4.8) 08/19/25 03:30 Lymph # (Auto) 3.7 X10^3/uL (1.3-2.9) H 08/19/25 03:30 [place] # (Auto) 0.4 x10^3/uL (0.3-0.8) 08/19/25 03:30 Eos # (Auto) 0.4 x10^3/uL (0.0-0.2) H 08/19/25 03:30 Baso # (Auto) 0.2 X10^3/uL (0.0-0.1) H 08/19/25 03:30 Absolute Nucleated RBC 0.1 /100WBC 08/19/25 03:30 PT 14.2 SECONDS (11.8-14.3) 08/18/25 10:08 INR Target Range - 08/18/25 10:08 INR 1.09 (0.8-1.3) 08/18/25 10:08 APTT 28.3 SECONDS (22.9-36.5) 08/18/25 10:08 PTT Comment - 08/18/25 10:08 D-Dimer < 0.27 ug/ml (0.0-0.57) 08/18/25 10:08 Sodium 140 mmol/L (136-145) 08/19/25 03:30 Corrected Sodium 143 mmol/L (136-145) 08/19/25 03:30 Potassium 3.4 mmol/L (3.5-5.1) L 08/19/25 03:30 Chloride 107 mmol/L (98-107) 08/19/25 03:30 Carbon Dioxide 24.7 mmol/L (21-32) 08/19/25 03:30 BUN 16 mg/dL (7-18) 08/19/25 03:30 Creatinine 0.73 mg/dL (0.55-1.02) 08/19/25 03:30 Est GFR (MDRD) Af Amer > 60 (>60) 08/19/25 03:30 Est GFR (MDRD) Non-Af > 60 (>60) 08/19/25 03:30 Glucose 206 mg/dL (65-99) H 08/19/25 03:30 POC Glucose (mg/dL) 254 mg/dL (65-99) H 08/19/25 05:15 Calcium 8.6 mg/dL (8.5-10.1) 08/19/25 03:30 Corrected Calcium 9.2 mg/dL (8.5-10.1) 08/19/25 03:30 Magnesium 2.0 mg/dL (2.0-2.9) 08/19/25 04:30 Total Bilirubin 0.30 mg/dL (0.2-1.0) 08/19/25 03:30 AST 11 Units/L (15-37) L 08/19/25 03:30 ALT 21 Units/L (12-78) 08/19/25 03:30 Alkaline Phosphatase 61 Units/L (46-116) 08/19/25 03:30 Creatine Kinase 35 Units/L (26-192) 08/18/25 15:36 Troponin I High Sens 8.3 ng/L (4.0-60.0) 08/19/25 03:30 Total Protein 6.7 g/dL (6.4-8.2) 08/19/25 03:30 Albumin 3.3 g/dL (3.4-5.0) L 08/19/25 03:30 Globulin 3.4 g/dL (2.5-4.5) 08/19/25 03:30 Albumin/Globulin Ratio 1.0 Ratio (1.1-2.1) L 08/19/25 03:30 Triglycerides 223 mg/dL (0-150) H 08/19/25 03:30 Cholesterol 152 mg/dL (0-200) 08/19/25 03:30 LDL Cholesterol, Calc 75 mg/dL (0-100) 08/19/25 03:30 HDL Cholesterol 32 mg/dL (40-60) L 08/19/25 03:30 Cholesterol/HDL Ratio 4.8 (0.0-5.0) 08/19/25 03:30 Thyroxine (T4) 6.8 ug/dL (4.7-13.3) 08/18/25 15:36 TSH 3rd Generation 0.213 uIU/mL (0.358-3.74) L 08/18/25 15:36 Assessment and Plan 1: Atrial Fib with RVR- Heart rate controlled; patient asymptomatic. Dr. Haro's recommendations read and appreciated; agree. Continue Metoprolol q 6hrs and BID Eliquis; proceed with Cardioversion per Dr. Haro. 2: Right Wrist Pain- etiology unclear. Patient with ? IV infiltration vs other process. Will check CBC, Uric acid level and plain film of wrist; given PO Toradol for pain. Await results 3: Hypertension- BP readings noted. Continue Amlodipine, Lisinopril and Metoprolol; will place hold parameters to reduce risk of hypotension 4: Hypokalemia- K+ 3.4; continue KCL and Magnesium supplementation- follow BMP and Magnesium levels 5: NIDDM- blood glucose levels noted; continue Glipizide and Metformin as well as sliding scale coverage as needed Problem Patient Problems: Patient Problems Chest pain (Acute) R07.9 Atrial flutter (Acute) I48.92 Sinus tachycardia (Acute) R00.0
[2025-08-19] MEDS: MAG-OX TAB PO SCH (09:47)
[2025-08-19] MEDS: NORVASC TAB 10 MG PO SCH (09:47)
[2025-08-19] MEDS: ULTRAM PO PRN (09:48)
[2025-08-19] MEDS: K-DUR TAB 20 MEQ PO SCH ×2 (09:50→11:20)
[2025-08-19] MEDS: ZESTRIL TAB 10 MG PO SCH (09:50)
[2025-08-19] MEDS: ZOLOFT PO SCH (09:51)
[2025-08-19] MEDS: TRICOR TAB 145 MG PO SCH (09:51)
[2025-08-19] MEDS: VITAMIN D (1.25MG) PO SCH (09:52)
[2025-08-19 10:02] LABS: MEAN PLATELET VOLUME 9.5 fL (7.4-11.0); RED CELL DISTRIBUTION WIDTH 12.9 % (11.6-16.5)
[2025-08-19] MEDS: ZOLOFT ONE (11:13)
--- NOTE | 2025-08-19 12:01 | RAD ---
EXAMINATION: WRIST, RIGHT HISTORY: RIGHT WRIST EDEMA AND PAIN; . COMPARISON STUDY: None. TECHNIQUE: 3 views of the right wrist were obtained. FINDINGS: There is normal mineralization and preservation of joint spaces. There is no fracture, dislocation, or radiopaque foreign body. There is no significant arthropathy. Minimal soft tissue swelling over the dorsum of the wrist.. No osteolytic or osteoblastic lesions are noted. IMPRESSION: NO ACUTE BONY PROCESS. . THIS IS AN ELECTRONICALLY VERIFIED FINAL REPORT 08/19/2025 11:57 AM - Electronically signed by Augustin Carpenter MD
[2025-08-19] MEDS: PEPCID 20 MG VIAL IVP ONE (13:25)
[2025-08-19] MEDS: REGLAN INJ 10 MG VIAL IVP ONE (13:28)
[2025-08-19] MEDS: ZOFRAN INJ 4 MG VIAL IVP SCH (13:30)
[2025-08-19] MEDS ORDERED: DIPRIVAN VIAL 20 ML ONE (14:09)
[2025-08-19] MEDS: NS 1,000 ML IV 250 ML IV PRN (14:21)
[2025-08-19] MEDS ORDERED: XYLOCAINE 2 % (PLAIN) PRN (14:27)
[2025-08-19] MEDS: DIPRIVAN VIAL 150 ML IVP PRN (14:27)
--- NOTE | 2025-08-19 15:05 | CARDIOVERT ---
Cardioversion Note Date of Procedure: Date: 08/19/25 Note Cardioversion note: precardioversion diagnosis: atrial flutter post cardioversion dx: NSR anesthesia per anesthesia procedure: consent obtained. once anesthesia was adequate, standard CAREY was performed that ruled out a contraindication. then 100J of synchronous electricity was given to chest converting her to sinus bradycardia 55. no complications noted. moving all4 extremities and talking post Cv. Impression: successful CV to nsr plan: doac as chads vasc 3 risk- low dose BB. f/u 2 weeks .
[2025-08-19 15:15] VITALS: RESP 24
[2025-08-19 15:20] VITALS: BP 90/62; PULSE 60; O2SAT 99
--- NOTE | 2025-08-19 17:04 | W.DIS.FURT ---
Summary of Discharge Discharge Summary of Date Date of Exam: 08/19/25 Admission Date Date of Admission: 08/18/25 Admission Diagnosis Patient Problems (Updated 08/18/25 @ 20:47 by Monique Mills) Chest pain (Acute) R07.9 Atrial flutter (Acute) I48.92 Sinus tachycardia (Acute) R00.0 Hospital Course: Patient admitted with new onset A fib with RVR; initially admitted to telemetry and started on Metoprolol. Evaluated by Dr. Diop who recommended transfer to ICU and starting Cardizem drip. Patient with appropriate response of heart rate to Cardizem drip; BP remained stable. Patient seen in follow up by Dr. Diop who recommended cardioversion. Of note, patient reported severe right wrist/forearm pain; IV discontinued, compresses placed, patient given Toradol 50mg PO and CBC, Uric acid level and plain film of wrist ordered- results noted. Patient with resolution of pain and decrease in swelling. Cardioversion performed by Dr. Diop; patient converted to sinus rhythm without c omplication. Discharged to home per Dr. Diop to follow up with PCP in 2-3 days. Recommend repeat CBC at that time Vital Signs: Vital Signs (72 hours) 08/18/25 10:02 08/18/25 10:03 08/18/25 10:15 Temperature 98.3 F Pulse Rate 141 H 142 H 143 H Pulse Rate [Bilateral Radial] Respiratory Rate 22 16 25 H Blood Pressure 109/86 Blood Pressure [Right Arm] O2 Sat by Pulse Oximetry 99 99 99 Oxygen Delivery Method Room Air Oxygen Flow Rate FIO2% 08/18/25 10:30 08/18/25 10:30 08/18/25 10:45 Temperature Pulse Rate 140 H 136 H Pulse Rate [Bilateral Radial] Respiratory Rate 28 H 24 Blood Pressure 125/90 Blood Pressure [Right Arm] O2 Sat by Pulse Oximetry 99 99 Oxygen Delivery Method Oxygen Flow Rate FIO2% 08/18/25 11:00 08/18/25 11:00 08/18/25 11:15 Temperature Pulse Rate 138 H 138 H Pulse Rate [Bilateral Radial] Respiratory Rate 24 25 H Blood Pressure 123/84 Blood Pressure [Right Arm] O2 Sat by Pulse Oximetry 99 99 Oxygen Delivery Method Oxygen Flow Rate FIO2% 08/18/25 11:30 08/18/25 11:31 08/18/25 11:31 Temperature Pulse Rate 140 H 139 H Pulse Rate [Bilateral Radial] Respiratory Rate 25 H 36 H Blood Pressure 140/82 Blood Pressure [Right Arm] O2 Sat by Pulse Oximetry 99 99 Oxygen Delivery Method Oxygen Flow Rate FIO2% 08/18/25 11:45 08/18/25 11:54 08/18/25 11:54 Temperature Pulse Rate 140 H 138 H Pulse Rate [Bilateral Radial] Respiratory Rate 18 20 Blood Pressure 124/92 Blood Pressure [Right Arm] O2 Sat by Pulse Oximetry 98 98 Oxygen Delivery Method Oxygen Flow Rate FIO2% 08/18/25 11:59 08/18/25 12:00 08/18/25 12:00 Temperature Pulse Rate 134 H Pulse Rate [Bilateral Radial] Respiratory Rate 27 H Blood Pressure 124/92 128/95 Blood Pressure [Right Arm] O2 Sat by Pulse Oximetry 98 Oxygen Delivery Method Oxygen Flow Rate FIO2% 08/18/25 12:16 08/18/25 12:17 08/18/25 12:17 Temperature Pulse Rate 132 H 133 H Pulse Rate [Bilateral Radial] Respiratory Rate 25 H 13 Blood Pressure 130/83 Blood Pressure [Right Arm] O2 Sat by Pulse Oximetry 97 Oxygen Delivery Method Oxygen Flow Rate FIO2% 08/18/25 12:20 08/18/25 12:20 08/18/25 12:22 Temperature Pulse Rate 132 H Pulse Rate [Bilateral Radial] Respiratory Rate 15 Blood Pressure 127/85 127/85 Blood Pressure [Right Arm] O2 Sat by Pulse Oximetry 96 Oxygen Delivery Method Oxygen Flow Rate FIO2% 08/18/25 12:30 08/18/25 12:30 08/18/25 12:45 Temperature Pulse Rate 132 H 133 H Pulse Rate [Bilateral Radial] Respiratory Rate 25 H 35 H Blood Pressure 119/90 Blood Pressure [Right Arm] O2 Sat by Pulse Oximetry 95 Oxygen Delivery Method Oxygen Flow Rate FIO2% 08/18/25 12:50 08/18/25 12:50 08/18/25 13:00 Temperature Pulse Rate 131 H Pulse Rate [Bilateral Radial] Respiratory Rate 38 H Blood Pressure 127/81 123/97 Blood Pressure [Right Arm] O2 Sat by Pulse Oximetry Oxygen Delivery Method Oxygen Flow Rate FIO2% 08/18/25 13:00 08/18/25 13:10 08/18/25 13:10 Temperature Pulse Rate 133 H Pulse Rate [Bilateral Radial] Respiratory Rate 34 H Blood Pressure 118/79 118/79 Blood Pressure [Right Arm] O2 Sat by Pulse Oximetry Oxygen Delivery Method Oxygen Flow Rate FIO2% 08/18/25 13:10 08/18/25 13:15 08/18/25 13:20 Temperature Pulse Rate 134 H 130 H 133 H Pulse Rate [Bilateral Radial] Respiratory Rate 29 H 23 22 Blood Pressure Blood Pressure [Right Arm] O2 Sat by Pulse Oximetry Oxygen Delivery Method Oxygen Flow Rate FIO2% 08/18/25 13:20 08/18/25 13:30 08/18/25 13:30 Temperature Pulse Rate 133 H Pulse Rate [Bilateral Radial] Respiratory Rate 25 H Blood Pressure 115/78 110/72 Blood Pressure [Right Arm] O2 Sat by Pulse Oximetry Oxygen Delivery Method Oxygen Flow Rate FIO2% 08/18/25 13:40 08/18/25 13:40 08/18/25 13:45 Temperature Pulse Rate 132 H 127 H Pulse Rate [Bilateral Radial] Respiratory Rate 27 H 30 H Blood Pressure 100/74 Blood Pressure [Right Arm] O2 Sat by Pulse Oximetry 96 98 Oxygen Delivery Method Oxygen Flow Rate FIO2% 08/18/25 14:00 08/18/25 14:00 08/18/25 14:11 Temperature Pulse Rate 134 H Pulse Rate [Bilateral Radial] Respiratory Rate 29 H Blood Pressure 109/80 133/87 Blood Pressure [Right Arm] O2 Sat by Pulse Oximetry 98 Oxygen Delivery Method Oxygen Flow Rate FIO2% 08/18/25 14:11 08/18/25 14:15 08/18/25 14:30 Temperature Pulse Rate 131 H 133 H 132 H Pulse Rate [Bilateral Radial] Respiratory Rate 33 H 27 H 17 Blood Pressure Blood Pressure [Right Arm] O2 Sat by Pulse Oximetry 96 98 97 Oxygen Delivery Method Oxygen Flow Rate FIO2% 08/18/25 14:45 08/18/25 14:45 08/18/25 15:00 Temperature Pulse Rate 130 H 132 H Pulse Rate [Bilateral Radial] Respiratory Rate 23 23 Blood Pressure Blood Pressure [Right Arm] O2 Sat by Pulse Oximetry 97 97 Oxygen Delivery Method Nasal Cannula Oxygen Flow Rate 2 FIO2% 08/18/25 15:03 08/18/25 15:04 08/18/25 15:04 Temperature Pulse Rate 111 H Pulse Rate [Bilateral Radial] 101 H Respiratory Rate 34 H Blood Pressure 133/87 Blood Pressure [Right Arm] O2 Sat by Pulse Oximetry Oxygen Delivery Method Oxygen Flow Rate FIO2% 08/18/25 15:10 08/18/25 15:35 08/18/25 17:07 Temperature 98.4 F Pulse Rate 69 Pulse Rate [Bilateral Radial] 100 H Respiratory Rate 16 22 Blood Pressure Blood Pressure [Right Arm] 133/87 O2 Sat by Pulse Oximetry 97 98 Oxygen Delivery Method Room Air Room Air Oxygen Flow Rate 2 FIO2% 28 08/18/25 17:15 08/18/25 18:00 08/18/25 19:00 Temperature Pulse Rate 69 69 69 Pulse Rate [Bilateral Radial] Respiratory Rate 31 H 29 H 26 H Blood Pressure 131/74 136/79 Blood Pressure [Right Arm] O2 Sat by Pulse Oximetry 99 98 100 Oxygen Delivery Method Nasal Cannula Nasal Cannula Oxygen Flow Rate 2 2 FIO2% 08/18/25 19:00 08/18/25 20:00 08/18/25 20:49 Temperature 98.0 F Pulse Rate 67 Pulse Rate [Bilateral Radial] Respiratory Rate 29 H Blood Pressure 128/65 Blood Pressure [Right Arm] O2 Sat by Pulse Oximetry 98 Oxygen Delivery Method Nasal Cannula Nasal Cannula Nasal Cannula Oxygen Flow Rate 2 2 2 FIO2% 28 08/18/25 21:00 08/18/25 22:00 08/18/25 23:00 Temperature 98.0 F Pulse Rate 71 66 66 Pulse Rate [Bilateral Radial] Respiratory Rate 27 H 28 H 25 H Blood Pressure 164/71 125/77 124/80 Blood Pressure [Right Arm] O2 Sat by Pulse Oximetry 96 96 96 Oxygen Delivery Method Nasal Cannula Nasal Cannula Nasal Cannula Oxygen Flow Rate 2 2 2 FIO2% 08/19/25 00:00 08/19/25 01:00 08/19/25 02:00 Temperature 98.2 F Pulse Rate 69 68 66 Pulse Rate [Bilateral Radial] Respiratory Rate 23 24 24 Blood Pressure 98/61 101/62 104/57 Blood Pressure [Right Arm] O2 Sat by Pulse Oximetry 95 95 95 Oxygen Delivery Method Nasal Cannula Nasal Cannula Nasal Cannula Oxygen Flow Rate 2 2 2 FIO2% 08/19/25 03:00 08/19/25 04:00 08/19/25 05:00 Temperature 98.1 F Pulse Rate 66 68 68 Pulse Rate [Bilateral Radial] Respiratory Rate 26 H 19 25 H Blood Pressure 116/64 119/74 119/68 Blood Pressure [Right Arm] O2 Sat by Pulse Oximetry 95 97 97 Oxygen Delivery Method Nasal Cannula Nasal Cannula Nasal Cannula Oxygen Flow Rate 2 2 2 FIO2% 08/19/25 06:00 08/19/25 07:00 08/19/25 07:00 Temperature Pulse Rate 66 66 Pulse Rate [Bilateral Radial] Respiratory Rate 22 23 Blood Pressure 125/85 113/69 Blood Pressure [Right Arm] O2 Sat by Pulse Oximetry 96 98 Oxygen Delivery Method Nasal Cannula Nasal Cannula Nasal Cannula Oxygen Flow Rate 2 2 2 FIO2% 08/19/25 08:00 08/19/25 08:00 08/19/25 09:00 Temperature 98.1 F Pulse Rate 69 70 Pulse Rate [Bilateral Radial] Respiratory Rate 26 H 22 Blood Pressure 118/66 132/73 Blood Pressure [Right Arm] O2 Sat by Pulse Oximetry 98 99 Oxygen Delivery Method Room Air Nasal Cannula Nasal Cannula Oxygen Flow Rate 2 2 2 FIO2% 28 08/19/25 09:48 08/19/25 10:00 08/19/25 10:48 Temperature Pulse Rate 70 Pulse Rate [Bilateral Radial] Respiratory Rate 21 28 H 22 Blood Pressure 137/73 Blood Pressure [Right Arm] O2 Sat by Pulse Oximetry 96 Oxygen Delivery Method Nasal Cannula Oxygen Flow Rate 2 FIO2% 08/19/25 11:00 08/19/25 12:00 08/19/25 13:00 Temperature 98.1 F Pulse Rate 71 69 68 Pulse Rate [Bilateral Radial] Respiratory Rate 21 24 22 Blood Pressure 123/71 110/65 132/71 Blood Pressure [Right Arm] O2 Sat by Pulse Oximetry 96 96 98 Oxygen Delivery Method Nasal Cannula Nasal Cannula Nasal Cannula Oxygen Flow Rate 2 2 2 FIO2% 08/19/25 14:00 08/19/25 15:00 Temperature Pulse Rate 69 60 Pulse Rate [Bilateral Radial] Respiratory Rate 24 24 Blood Pressure 107/63 90/62 Blood Pressure [Right Arm] O2 Sat by Pulse Oximetry 97 99 Oxygen Delivery Method Room Air Room Air Oxygen Flow Rate FIO2% Labs: Laboratory Last Values WBC 15.0 X10^3/uL (3.6-10.0) H 08/19/25 09:48 RBC 4.95 X10^6/uL (3.5-5.4) 08/19/25 09:48 Hgb 14.4 g/dL (12.0-16.0) 08/19/25 09:48 Hct 41.9 % (36.0-47.0) 08/19/25 09:48 MCV 84.5 fL (80.0-100.0) 08/19/25 09:48 MCH 29.1 pg (27.0-34.0) 08/19/25 09:48 MCHC 34.5 g/dL (33.0-35.0) 08/19/25 09:48 RDW 12.9 % (11.6-16.5) 08/19/25 09:48 Plt Count 263 X10^3/uL (150.0-450.0) 08/19/25 09:48 MPV 9.5 fL (7.4-11.0) 08/19/25 09:48 Neut % (Auto) 68.9 % (42.0-75.0) 08/19/25 09:48 Lymph % (Auto) 22.1 % (21.0-51.0) 08/19/25 09:48 Catron % (Auto) 5.7 % (0.0-13.0) 08/19/25 09:48 Eos % (Auto) 2.5 % (0.9-2.9) 08/19/25 09:48 Baso % (Auto) 0.8 % (0.2-1.0) 08/19/25 09:48 Neut # (Auto) 10.3 x10^3/uL (2.2-4.8) H 08/19/25 09:48 Lymph # (Auto) 3.3 X10^3/uL (1.3-2.9) H 08/19/25 09:48 Catron # (Auto) 0.9 x10^3/uL (0.3-0.8) H 08/19/25 09:48 Eos # (Auto) 0.4 x10^3/uL (0.0-0.2) H 08/19/25 09:48 Baso # (Auto) 0.1 X10^3/uL (0.0-0.1) 08/19/25 09:48 Absolute Nucleated RBC 0.1 /100WBC 08/19/25 09:48 PT 14.2 SECONDS (11.8-14.3) 08/18/25 10:08 INR Target Range - 08/18/25 10:08 INR 1.09 (0.8-1.3) 08/18/25 10:08 APTT 28.3 SECONDS (22.9-36.5) 08/18/25 10:08 PTT Comment - 08/18/25 10:08 D-Dimer < 0.27 ug/ml (0.0-0.57) 08/18/25 10:08 Sodium 140 mmol/L (136-145) 08/19/25 03:30 Corrected Sodium 143 mmol/L (136-145) 08/19/25 03:30 Potassium 3.4 mmol/L (3.5-5.1) L 08/19/25 03:30 Chloride 107 mmol/L (98-107) 08/19/25 03:30 Carbon Dioxide 24.7 mmol/L (21-32) 08/19/25 03:30 BUN 16 mg/dL (7-18) 08/19/25 03:30 Creatinine 0.73 mg/dL (0.55-1.02) 08/19/25 03:30 Est GFR (MDRD) Af Amer > 60 (>60) 08/19/25 03:30 Est GFR (MDRD) Non-Af > 60 (>60) 08/19/25 03:30 Glucose 206 mg/dL (65-99) H 08/19/25 03:30 POC Glucose (mg/dL) 110 mg/dL (65-99) H 08/19/25 11:30 Uric Acid 3.8 mg/dL (2.6-6.0) 08/19/25 09:48 Calcium 8.6 mg/dL (8.5-10.1) 08/19/25 03:30 Corrected Calcium 9.2 mg/dL (8.5-10.1) 08/19/25 03:30 Magnesium 2.0 mg/dL (2.0-2.9) 08/19/25 04:30 Total Bilirubin 0.30 mg/dL (0.2-1.0) 08/19/25 03:30 AST 11 Units/L (15-37) L 08/19/25 03:30 ALT 21 Units/L (12-78) 08/19/25 03:30 Alkaline Phosphatase 61 Units/L (46-116) 08/19/25 03:30 Creatine Kinase 35 Units/L (26-192) 08/18/25 15:36 Troponin I High Sens 8.3 ng/L (4.0-60.0) 08/19/25 03:30 Total Protein 6.7 g/dL (6.4-8.2) 08/19/25 03:30 Albumin 3.3 g/dL (3.4-5.0) L 08/19/25 03:30 Globulin 3.4 g/dL (2.5-4.5) 08/19/25 03:30 Albumin/Globulin Ratio 1.0 Ratio (1.1-2.1) L 08/19/25 03:30 Triglycerides 223 mg/dL (0-150) H 08/19/25 03:30 Cholesterol 152 mg/dL (0-200) 08/19/25 03:30 LDL Cholesterol, Calc 75 mg/dL (0-100) 08/19/25 03:30 HDL Cholesterol 32 mg/dL (40-60) L 08/19/25 03:30 Cholesterol/HDL Ratio 4.8 (0.0-5.0) 08/19/25 03:30 Thyroxine (T4) 6.8 ug/dL (4.7-13.3) 08/18/25 15:36 TSH 3rd Generation 0.213 uIU/mL (0.358-3.74) L 08/18/25 15:36 Reason For Visit: SINUS TACH, A FLUTTER, CHEST PAIN Discharge Diagnosis All Active Problems (Updated 08/18/25 @ 20:47 by Monique Mills) Essential hypertension (Acute) New onset atrial fibrillation (Acute) Chest pain (Acute) Atrial flutter (Acute) Sinus tachycardia (Acute) Flu vaccine need (Acute) Encounter for screening colonoscopy (Acute) Abnormal TSH (Acute) Vitamin D deficiency (Acute) Need for immunization against influenza (Acute) Dysphagia (Acute) DDD (degenerative disc disease) (Acute) THOM (generalized anxiety disorder) (Acute) Plan of Treatment: Continue with present treatment and follow up plan. Pt is to keep follow up appointment as instructed and take medications as ordered. Discharge Medications Discharge Medications: No Known Drug Allergies Allergy (Verified 08/18/25 10:09) New Prescriptions apixaban 5 mg tablet (Eliquis) 5 mg PO BID #30 tabs 08/19/25 [Rx] metoprolol succinate 25 mg tablet,extended release 24 hr 25 mg PO QDAY #30 tabs 08/19/25 [Rx] Discharge Disposition Assessment: 1)Atrial Fibrillation with RVR- resolved. Converted to NSR with cardioversion 2) Chest Pain- CA ruled out. Symptoms resolved Discharge Plan Discharge Plan Hospital Course: Patient admitted with new onset A fib with RVR; initially admitted to telemetry and started on Metoprolol. Evaluated by Dr. Diop who recommended transfer to ICU and starting Cardizem drip. Patient with appropriate response of heart rate to Cardizem drip; BP remained stable. Patient seen in follow up by Dr. Diop who recommended cardioversion. Of note, patient reported severe right wrist/forearm pain; IV discontinued, compresses placed, patient given Toradol 50mg PO and CBC, Uric acid level and plain film of wrist ordered- results noted. Patient with resolution of pain and decrease in swelling. Cardioversion performed by Dr. Diop; patient converted to sinus rhythm without complic ation. Discharged to home per Dr. Diop to follow up with PCP in 2-3 days. Recommend repeat CBC at that time Patient Disposition: 01 HOME, SELF-CARE Condition: Stable Health Concerns: Post Hospitalization: new medications and changes needed to prevent readmission or further decline. Pt educated and given instructions on all concerns. Care Plan Goals: Problem: Pain/Alteration in Comfort Goal: Improve/ Resolve Pain; Achieve Pain Tolerance Instructions: Take pain medications as prescribed. Contact your primary care provider if your pain is unrelieved or worsens. Follow up with primary care provider as directed. Plan of Treatment: Continue with present treatment and follow up plan. Pt is to keep follow up appointment as instructed and take medications as ordered. Assessment: 1)Atrial Fibrillation with RVR- resolved. Converted to NSR with cardioversion 2) Chest Pain- CA ruled out. Symptoms resolved Prescription drug monitoring program results: PDMP reviewed with concerns id entified Prescriptions: New Eliquis 5 mg Tablet 5 mg PO BID Qty: 30 0RF metoprolol succinate 25 mg Tablet Extended Release 24 Hr 25 mg PO QDAY Qty: 30 0RF No Action ergocalciferol (vitamin D2) 1,250 mcg (50,000 unit) capsule 1,250 mcg PO QWEEK Qty: 26 0RF sertraline 100 mg tablet 100 mg PO QDAY Qty: 90 1RF gabapentin 100 mg capsule 200 mg PO QDAY PRN (Reason: for neuropathic pain) Qty: 200 2RF oxycodone-acetaminophen [Percocet] 10-325 mg tablet 1 tab PO TID MDD 3 PRN (Reason: pain) 30 Days Qty: 90 0RF glipizide 10 mg tablet extended release 24hr 10 mg PO QDAY Qty: 30 3RF atorvastatin 40 mg tablet 40 mg PO QPM Qty: 100 2RF Orders to Discharge Patient Discharge Orders: Discharge (Routine); Ordered 08/19/25 Ordered By: MARIA ANTONIA DIOP Follow ups/Referrals Follow ups/Referrals: Myron Sarkar MD [Primary Care Provider, MEDICAL] - 08/28/25 1:15 pm MARIA ANTONIA DIOP MD [STAFF PHYSICIAN, Cardiology] - 08/26/25 1:40 pm Instructions Instructions: How to Take Your Blood Pressure, Atrial Flutter, Nonspecific Chest Pain, Adult, [id number], Preventing Hypertension Activity Restrictions/Additional Instructions: If Patient is currently taking Cardizem or Lopressor, Pt. is to discontinue these meds. Stand Alone Forms: Excuse From Work or School, Find Help Web Site, [facility] Follow Up Care Print Language: [place]
[2025-08-20] MEDS ORDERED: NORVASC TAB 10 MG PO SCH (09:00)
[2025-08-20] MEDS ORDERED: ZESTRIL TAB 10 MG PO SCH (09:00)
== END 2025-08-19 15:25 | disposition home or self-care (01) ==
LOC: ER 09:55 → MED/SURG 09:55 → ICU 15:53
PROVIDERS: ADMIT Family Medicine; ATTEND Family Medicine
DX: R00.0 Tachycardia, unspecified; F12.90 Cannabis use, unspecified, uncomplicated; I48.92 Unspecified atrial flutter; Z72.0 Tobacco use; F32.89 Other specified depressive episodes; F41.8 Other specified anxiety disorders; E87.6 Hypokalemia; I10 Essential (primary) hypertension; M25.531 Pain in right wrist; E83.42 Hypomagnesemia; R06.02 Shortness of breath; E11.65 Type 2 diabetes mellitus with hyperglycemia; R07.89 Other chest pain; M25.431 Effusion, right wrist; I48.91 Unspecified atrial fibrillation; Z79.01 Long term (current) use of anticoagulants; E78.2 Mixed hyperlipidemia